=== PATIENT | female | born 1990 | race Caucasian/White ===

== ENCOUNTER → 2018-08-07 | Outpatient (CLI) | payer BC, MEDICAID ==
[~2018-08-07] MED LIST: AGM875T PO; METH4TAB PO; METR500T PO; NAPR-243 PO
--- NOTE | 2018-08-07 13:47 | Diagnostic Imaging Report ---
PROCEDURE: MRI right joint upper extremity without contrast. TECHNIQUE: Multiplanar, multisequence non contrast-enhanced MRI of the right upper extremity was accomplished. INDICATION: Shoulder pain, decreased range of motion, popping, and grinding; history of rheumatoid arthritis. COMPARISON: There are no previous studies available for comparison. FINDINGS: On the coronal T2 fat-saturated series, the rotator cuff is thinned but seems to be intact. The supraspinatus muscle is not retracted or bunched. 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 The labrum is thinned and most likely torn on a degenerative basis. There are also numerous sublabral cysts within the glenoid. Cyst formation is also seen in the humeral head along the insertion of the rotator cuff. In addition, there is an amorphous soft tissue density within the joint. This may be secondary to pannus formation related to the patient's diagnosis of rheumatoid arthritis. There is also a small joint effusion present. The subscapularis tendon is intact, but it is difficult to visualize the attachment of the biceps tendon to the biceps anchor. I suspect that the attachment of the biceps tendon to the biceps anchor has been disrupted. There is mild hypertrophy of the acromioclavicular joint, and this does result in narrowing of the outlet for the supraspinatus muscle. There is no abnormal signal arising from the osseous structures to suggest an acute fracture. IMPRESSION: 1. The rotator cuff is thinned but intact. 2. There is severe degenerative disease involving the glenohumeral joint, and the amorphous soft tissue density within the joint space may be secondary to pannus formation. A small joint effusion is noted as well. 3. The attachment of the biceps tendon to the biceps anchor is not well visualized and most likely the attachment has been disrupted. 4. There is no acute bony abnormality appreciated. Dictated on workstation # [id number]
--- NOTE | 2018-08-07 17:53 | Diagnostic Imaging Report ---
EXAMINATION: Left elbow at 08:55 a.m. INDICATION: Elbow pain. FINDINGS: Three views were obtained. There are no prior studies available for comparison. There is no fracture, dislocation, or acute bony abnormality evident. However, the posterior fat pad of the elbow joint is slightly elevated. This suggests that there may be a joint effusion present. While this finding is often seen in the setting of trauma with hemorrhage from a fracture extending into the joint, the possibility that there is a small joint effusion related to the patient's diagnosis of rheumatoid arthritis should be considered. There does appear to be moderate degenerative disease of the articulation of the olecranon process and the distal humerus. IMPRESSION: 1. There is no evidence for an acute bony abnormality. 2. There is degenerative disease of the articulation of the olecranon process and the distal humerus and there may be a small joint effusion present. These findings could be secondary to the patient's diagnosis of rheumatoid arthritis. If further imaging is desired, then MRI will be recommended. Dictated by: Dictated on workstation # [id number]
== END ==
LOC: RAD 07:58
PROVIDERS: ATTEND Emergency Medicine
DX: M19.011 Primary osteoarthritis, right shoulder (principal); M19.022 Primary osteoarthritis, left elbow; M75.81 Other shoulder lesions, right shoulder
CPT/HCPCS: 73080; 73221

== ENCOUNTER 2018-08-09 16:45 | Emergency (ER) | payer BC ==
[~2018-08-09] VITALS: Ht 165.1 cm; Wt 99.8 kg
[2018-08-09 17:27] LABS: CLARITY,URINE SL CLOUDY; COLOR,URINE DARK YELLOW; GLUCOSE, URINE (UA) NEGATIVE (NEGATIVE); PH,URINE 5.5 (5-9); PROTEIN,URINE TRACE (NEGATIVE)
[2018-08-09 17:28] LABS: BACTERIA,URINE MODERATE /HPF; BILIRUBIN,URINE NEGATIVE (NEGATIVE); KETONES,URINE 1+ (NEGATIVE); LEUKOCYTE ESTERASE ,URINE NEGATIVE (NEGATIVE); NITRITE,URINE NEGATIVE (NEGATIVE); SQUAMOUS EPITHELIAL CELL,UR 25-50 /HPF; UROBILINOGEN,URINE 0.2 MG/DL (NORMAL)
--- NOTE | 2018-08-09 18:08 | ED Abdominal Pain ---
General Chief Complaint: Abdominal/GI Problems Stated Complaint: RASH/WEAKNESS ABD PAIN Nursing Triage Note: Patient reports she was sitting on the cough this afternoon after eating lunch when she began having burning epigastric/generalized abdominal pain rated 6/10. She states she went to the bathroom and became flushed and sweaty, then developed redness to hands bilaterally and rash to trunk and arms bilaterally. She also became dizzy during this time. She states she has had two similar episodes in the last several months and has had two negative work-ups. Sepsis Screen: No Definite Risk History of Present Illness Date Seen by Provider: Aug 09, 2018 Time Seen by Provider: 17:50 This is a 28-year-old female with a history of rheumatoid arthritis on oxycodone , ibuprofen, also taking phentermine, and hx of PCOS, here for abdominal pain and itchy rash that started earlier today at rest. She states that she's had the same constellation of symptoms twice in the past, she did have blood testing with her doctor but was unsure if she was ever given a diagnosis. She says that she started to develop lower abdominal pain that then generalized throughout the whole abdomen, no vomiting, no change in bowel movements or change in urination, no vaginal bleeding. No fever or chills. She also started to feel hot and sweaty, her upper extremities felt itchy and then looked like they were red in color although this has resolved without intervention. She also had a rash around her neck that is still present. Never had difficulty swallowing or breathing. Never had coughing or wheezing. Never had lightheadedness. No alcohol, no drugs, she does vape nicotine. No family history of medical conditions that she is aware of. Allergies and Home Medications Allergies Uncoded Allergies: PCN (Allergy, Mild, 06/21/10) SULFA (Allergy, Mild, 06/21/10) Home Medications Metronidazole 500 Mg Tab, 1 EACH PO TID FOR INFECTION Prescribed by: BASILIA QUIROZ on 06/21/10451 Naproxen 500 Mg Tablet, 1 EACH PO TID PRN FOR PAIN Prescribed by: BASILIA QUIROZ on 06/21/10451 Patient Home Medication List Home Medication List Reviewed: Yes Review of Systems Review of Systems Constitutional: no symptoms reported EENTM: No Symptoms Reported Respiratory: No Symptoms Reported Cardiovascular: No Symptoms Reported Gastrointestinal: See HPI Genitourinary: No Symptoms Reported Musculoskeletal: no symptoms reported Skin: see HPI Psychiatric/Neurological: No Symptoms Reported Endocrine: No Symptoms Reported Hematologic/Lymphatic: See HPI (petechial rash) Past Dlmbsab-Uqkxal-Phlqyp Hx Past Med/Social Hx: Reviewed Nursing Past Med/Soc Hx Patient Social History Alcohol Use: Denies Use Recreational Drug Use: No Smoking Status: Current Everyday Smoker Type Used: Electronic/Vapor 2nd Hand Smoke Exposure: No Recent Foreign Travel: No Contact w/Someone Who Travel: No Recent Infectious Disease Expo: No Recent Hopitalizations: No Physical Abuse: No Sexual Abuse: No Mistreated: No Fear: No Seasonal Allergies Seasonal Allergies: No Past Medical History Surgeries: No Respiratory: No Cardiac: No Neurological: No Female Reproductive Disorders: Ovarian Cyst Genitourinary: No Gastrointestinal: No Musculoskeletal: Yes Rheumatoid Arthritis Endocrine: No HEENT: No Cancer: No Psychosocial: Yes Anxiety Integumentary: No Blood Disorders: No Physical Exam Vital Signs Vital Signs - First Documented 08/09/18 17:08 Temp 97.8 Pulse 99 Resp 16 B/P (MAP) 132/89 (103) Pulse Ox 99 O2 Delivery Room Air Capillary Refill : Less Than 3 Seconds Height/Weight/BMI Height: 5'5.00" Weight: 220lbs. oz. 99.496121ia; BMI Method:Stated General Appearance: no apparent distress HEENT: normal ENT inspection Neck: supple Respiratory: lungs clear Cardiovascular: normal peripheral pulses, regular rate, rhythm Gastrointestinal: soft, other (mild diffuse tenderness without rebound, rigidity, or guarding) Genital/Rectal: other (pelvic exam with Sunita EDT as packaging mechanic: normal external exam, small cloudy cervical discharge, mild to moderate CMT, otherwise no focal tenderness) Skin: warm/dry, other (there is a small area of petechiae present on base of the left side of the neck) Focused Exam Lactate Level 08/09/18 18:25: Lactic Acid Level 1.12 Lactic Acid Level Laboratory Tests Test 08/09/18 18:25 Lactic Acid Level 1.12 MMOL/L (0.50-2.00) Progress/Results/Core Measures Results/Orders Lab Results Laboratory Tests Test 08/09/18 17:05 08/09/18 18:15 08/09/18 18:25 08/09/18 19:50 Range/Units Urine Color DARK YELLOW Urine Clarity SL CLOUDY Urine pH 5.5 5-9 Urine Specific [place] >=1.030 1.016-1.022 Urine Protein TRACE H NEGATIVE Urine Glucose (UA) NEGATIVE NEGATIVE Urine Ketones 1+ H NEGATIVE Urine Nitrite NEGATIVE NEGATIVE Urine Bilirubin NEGATIVE NEGATIVE Urine Urobilinogen 0.2 NORMAL MG/DL Urine Leukocyte Esterase NEGATIVE NEGATIVE Urine RBC (Auto) NEGATIVE NEGATIVE Urine RBC NONE /HPF Urine WBC 5-10 H /HPF Urine Squamous Epithelial Cells 25-50 H /HPF Urine Crystals NONE /LPF Urine Bacteria MODERATE H /HPF Urine Casts NONE /LPF Urine Mucus LARGE H /LPF Urine Culture Indicated NO Urine Test NEGATIVE NEGATIVE White Blood Count 14.9 H 4.3-11.0 10^3/uL Red Blood Count 4.74 4.35-5.85 10^6/uL Hemoglobin 12.4 11.5-16.0 G/DL Hematocrit 39 35-52 % Mean Corpuscular Volume 81 80-99 FL Mean Corpuscular Hemoglobin 26 25-34 PG Mean Corpuscular Hemoglobin Concent 32 32-36 G/DL Red Cell Distribution Width 13.2 10.0-14.5 % Platelet Count 659 H 130-400 10^3/uL Mean Platelet Volume 9.0 7.4-10.4 FL Neutrophils (%) (Auto) 82 H 42-75 % Lymphocytes (%) (Auto) 11 L 12-44 % Monocytes (%) (Auto) 6 0-12 % Eosinophils (%) (Auto) 0 0-10 % Basophils (%) (Auto) 0 0-10 % Neutrophils # (Auto) 12.2 H 1.8-7.8 X 10^3 Lymphocytes # (Auto) 1.7 1.0-4.0 X 10^3 Monocytes # (Auto) 0.9 0.0-1.0 X 10^3 Eosinophils # (Auto) 0.0 0.0-0.3 10^3/uL Basophils # (Auto) 0.0 0.0-0.1 10^3/uL Neutrophils % (Manual) 77 % Lymphocytes % (Manual) 12 % Monocytes % (Manual) 6 % Eosinophils % (Manual) 1 % Basophils % (Manual) 1 % Band Neutrophils 3 % Sodium Level 139 135-145 MMOL/L Potassium Level 4.0 3.6-5.0 MMOL/L Chloride Level 100 98-107 MMOL/L Carbon Dioxide Level 24 21-32 MMOL/L Anion Gap 15 H 5-14 MMOL/L Blood Urea Nitrogen 17 7-18 MG/DL Creatinine 0.98 0.60-1.30 MG/DL Estimat Glomerular Filtration Rate > 60 BUN/Creatinine Ratio 17 Glucose Level 103 70-105 MG/DL Calcium Level 9.6 8.5-10.1 MG/DL Corrected Calcium 9.8 8.5-10.1 MG/DL Total Bilirubin 0.2 0.1-1.0 MG/DL Aspartate Amino Transf (AST/SGOT) 13 5-34 U/L Alanine Aminotransferase (ALT/SGPT) 12 0-55 U/L Alkaline Phosphatase 90 40-136 U/L Total Protein 8.0 6.4-8.2 GM/DL Albumin 3.7 3.2-4.5 GM/DL Lipase 50 8-78 U/L Prothrombin Time 13.5 12.2-14.7 SEC INR Comment 1.0 0.8-1.4 Activated Partial Thromboplast Time 31 24-35 SEC Lactic Acid Level 1.12 0.50-2.00 MMOL/L My Orders Orders - ANGELINA GOMEZ DO Ua Culture If Indicated (08/09/18 17:16) Hcg,Qualitative Urine (08/09/18 17:16) Hcg,Qualitative Urine (08/09/18 17:27) Ua Culture If Indicated (08/09/18 17:27) Cbc With Automated Diff (08/09/18 18:01) Comprehensive Metabolic Panel (08/09/18 18:01) Partial Thromboplastin Time (08/09/18 18:01) Protime With Inr (08/09/18 18:01) Lipase (08/09/18 18:01) Ct Abd/Pelv W (Appendicitis) (08/09/18 18:01) Blood Culture (08/09/18 18:09) Lactic Acid Analyzer (08/09/18 18:09) Manual Differential (08/09/18 18:15) Iohexol Injection (Omnipaque 350 Mg/Ml 1 (08/09/18 18:45) Received Contrast (Hold Metformin- Contr (08/09/18 18:45) Ns (Ivpb) (Sodium Chloride 0.9% Ivpb Bag (08/09/18 18:45) Chlamydia Trachomatis Swab (08/09/18 19:32) Neisseria Gonorrhea Swab (08/09/18 19:32) Clindamycin 900 Mg/50 Ml Ivpb (Cleocin P (08/09/18 20:00) Gentamicin (Adult) Injection (Garamycin (08/09/18 19:58) Ceftriaxone For Im Use (Rocephin For Im (08/09/18 20:15) Lidocaine 1% Inj 20 Ml (Xylocaine 1% Inj (08/09/18 20:15) Hydromorphone Injection (Dilaudid Inject (08/09/18 20:30) Hydromorphone Injection (Dilaudid Inject (08/09/18 20:20) Lidocaine Pf 1% 5 Ml Injection (Xylocain (08/09/18 20:52) Medications Given in ED Current Medications Medications Dose Ordered Sig/Henrietta Route Start Time Stop Time Status Last Admin Dose Admin Clindamycin Phosphate/Dextrose 50 ml @ 100 mls/hr ONCE ONCE IV 08/09/18 20:00 08/09/18 20:29 DC 08/09/18 20:17 100 MLS/HR Hydromorphone HCl 1 mg ONCE ONCE IV 08/09/18 20:30 08/09/18 20:31 DC 08/09/18 20:24 1 MG Iohexol 100 ml ONCE ONCE IV 08/09/18 18:45 08/09/18 20:30 DC 08/09/18 18:46 100 ML Lidocaine HCl 0.9 ml ONCE ONCE INJ 08/09/18 20:15 08/09/18 20:16 DC 08/09/18 21:01 0.9 ML Vital Signs/I&O 08/09/18 17:08 Temp 97.8 Pulse 99 Resp 16 B/P (MAP) 132/89 (103) Pulse Ox 99 O2 Delivery Room Air Blood Pressure Mean: 103 Progress Progress Note #1: Progress Note This is a 28-year-old female with a history of rheumatoid arthritis on oxycodone , ibuprofen for this, also one phentermine, who is here for an itchy rash on the neck and extremities, currently resolved on the extremities, also diffuse abdominal pain. She states that she has had all of these symptoms before. She does have an area of petechiae on the left side of the neck which could simply be related to mechanical etiology however I am checking coagulation studies, platelets, I am checking a urinalysis, I can check blood cultures and lactic acid level although I do not believe the patient is septic. She does not have any symptoms suggestive of meningitis. ITP or TTP are considerations. Her abdomen is without peritoneal findings however I feel a CT may be of benefit. Patient denies need for any specific interventions like analgesics, antipruritic medication. We will continue to monitor. Progress Note #2: Progress Note Given adnexal mass I performed pelvic exam w Sunita EDT as packaging mechanic. GC/Chlam swab was sent, and given abscess is a differential consideration and equivocal finding of CMT on exam, I ordered empiric abx. Radiology was unable to assess blood flow on ovary and recommends US which is not available here. Presentation is not consistent with acute torsion but at this size she is at risk. So pt needs transfer to facility with US capability as well as SKETCH ARTIST. [facility] on diversion. 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 I paged [facility] as pt and s.o. were in agreement with transfer there. Departure Impression Primary Impression: Pelvic mass Additional Impressions: Petechial rash Leukocytosis Disposition: 02 XFER SHT-TRM HOSP Condition: Stable Transfer Time Spoke to Accepting Phy: 21:[address] Dickens Transfer Facility: [facility] Method of Transfer: EMS Departure-Patient Inst. Referrals: ESTEFANÍA FOX DO (PCP/Family) Primary Care Physician ANGELINA GOMEZ DO Aug 09, 2018 18:08
[2018-08-09 18:32] LABS: HEMATOCRIT 39 % (35-52); HEMOGLOBIN 12.4 G/DL (11.5-16.0); MEAN CORPUSCULAR HEMOGLOBIN 26 PG (25-34); MEAN CORPUSCULAR HGB CONC 32 G/DL (32-36); MEAN CORPUSCULAR VOLUME 81 FL (80-99); PLATELET COUNT 659 10^3/uL (130-400); RED CELL DISTRIBUTION WIDTH 13.2 % (10.0-14.5); WHITE BLOOD COUNT 14.9 10^3/uL (4.3-11.0)
[2018-08-09 18:33] LABS: BASOPHILS % (AUTO) 0 % (0-10); EOSINOPHILS % (AUTO) 0 % (0-10); LYMPHOCYTES # (AUTO) 1.7 X 10^3 (1.0-4.0); LYMPHOCYTES % (AUTO) 11 % (12-44); MONOCYTES # (AUTO) 0.9 X 10^3 (0.0-1.0); MONOCYTES % (AUTO) 6 % (0-12); NEUTROPHILS # (AUTO) 12.2 X 10^3 (1.8-7.8); NEUTROPHILS % (AUTO) 82 % (42-75)
[2018-08-09] MEDS ORDERED: IOHEXOL 350 MG/ML 100 ML (OMNIPAQUE 350) VIAL IV ONE (18:45)
[2018-08-09] MEDS ORDERED: NS 100 ML (IVPB) BAG IV ONE (18:45)
[2018-08-09] MEDS ORDERED: HOLD METFORMIN - RECEIVED CONTRAST 20 ML VIAL IV SCH (18:45)
[2018-08-09 18:54] LABS: BUN/CREATININE RATIO 17; CARBON DIOXIDE 24 MMOL/L (21-32); CHLORIDE 100 MMOL/L (98-107); CREATININE SERUM 0.98 MG/DL (0.60-1.30); GFR ESTIMATED > 60; SODIUM 139 MMOL/L (135-145)
[2018-08-09 18:55] LABS: ALANINE AMINOTRANSFERASE 12 U/L (0-55); ALBUMIN 3.7 GM/DL (3.2-4.5); ALKALINE PHOSPHATASE 90 U/L (40-136); BILIRUBIN,TOTAL 0.2 MG/DL (0.1-1.0); CALCIUM 9.6 MG/DL (8.5-10.1); GLUCOSE 103 MG/DL (70-105); LIPASE 50 U/L (8-78)
--- NOTE | 2018-08-09 18:55 | NUR ---
ASSUMED CARE OF THIS PATIENT FROM [facility], INTRODUCED SELF REVIEWED PLAN OF CARE. WILL CONTINUE TO MONITOR
[2018-08-09 19:05] LABS: BAND NEUTROPHILS 3 %; BASOPHILS % (MANUAL) 1 %; EOSINOPHILS % (MANUAL) 1 %; LYMPHOCYTES % (MANUAL) 12 %; MONOCYTES % (MANUAL) 6 %; NEUTROPHILS % (MANUAL) 77 %
--- NOTE | 2018-08-09 19:11 | Diagnostic Imaging Report ---
PROCEDURE: CT abdomen and pelvis with contrast, rule out appendicitis. TECHNIQUE: Multiple contiguous axial images were obtained through the abdomen and pelvis after the administration of intravenous contrast. INDICATION: Low abdominal pain. No comparison available. FINDINGS: The lung bases demonstrate no focal infiltrate or consolidation. There is no pleural or pericardial effusion. The liver demonstrates no focal intrahepatic abnormality. There is a gallstone within the gallbladder. There is no gallbladder distention or biliary dilatation. There is no adjacent inflammation or pericholecystic fluid. The spleen is normal in size. The pancreas is unremarkable. There is no adrenal mass. The kidneys appear nonobstructed. 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 The small and large bowel are normal in caliber without evidence of obstruction. The appendix is well-visualized and is normal. There is no abnormal bowel thickening. There is no focal inflammation within the omentum or the mesentery. The urinary bladder is nondistended. The uterus and the right ovary are unremarkable. In the left adnexa, there is a septated cystic lesion that may arise from the left ovary. This does extend midline and measures up to 11.6 x 10.2 x 7.4 cm. There is no free fluid within the pelvis. There is no free air. There is no pathologic lymphadenopathy. Aorta is normal in caliber. There is no acute or suspicious osseous abnormality. IMPRESSION: 1. Septated low-density cystic mass within the pelvis. On the coronal reformats the left ovary appears to be on its superior margin with a claw sign suggesting that this arises from the ovary. This likely reflects a large ovarian cyst but given its size would suggest interval followup to document resolution. Pelvic ultrasound could also be considered to confirm Doppler flow within the left ovary. 2. Cholelithiasis without gallbladder distention or biliary dilatation. 3. CT abdomen and pelvis otherwise appears unremarkable. Dictated by: Dictated on workstation # [id number]
[2018-08-09] MEDS ORDERED: GENTAMICIN IV STA (19:58)
[2018-08-09] MEDS ORDERED: NS IV STA (19:58)
[2018-08-09 20:00] LABS: PROTHROMBIN TIME PATIENT 13.5 SEC (12.2-14.7)
[2018-08-09] MEDS ORDERED: CLINDAMYCIN 900 MG/50 ML IVPB 50 ML IV ONE (20:00)
[2018-08-09] MEDS ORDERED: cefTRIAXone 250 MG/ML vial (IM ONLY) IM STA (20:15)
[2018-08-09] MEDS ORDERED: LIDOCAINE 1% INJ 20 ML 20 ML VIAL INJ ONE (20:15)
[2018-08-09] MEDS ORDERED: HYDROmorphone 2 MG/ML VIAL (DILAUDID) ONE (20:20)
[2018-08-09] MEDS ORDERED: HYDROmorphone 2 MG/ML VIAL (DILAUDID) IV ONE (20:30)
[2018-08-09] MEDS ORDERED: LIDOCAINE PF 1% 5 ML (XYLOCAINE) AMP ONE (20:52)
[2018-08-09] MEDS ORDERED: HYDROmorphone 2 MG/ML VIAL (DILAUDID) IVP ONE (22:15)
[2018-08-09 23:27] VITALS: BP 114/67
--- NOTE | 2018-08-09 23:27 | NUR ---
PATIENT DEPARTED FROM THIS ER IN PRIVATE VEHICLE DRIVEN BY HER SPOUSE. IV WAS WRAPPED IN P[facility]RE[place] AND COVERED WITH TAPE. REPORT WAS GIVEN TO LUÍS CHARGE NURSE FOR EMILIA RN WHO WILL CARE FOR THE PATIENT UPON ARRIVAL. PATIENT IS A DIRECT ADMIT TO MEDICAL ROOM 186. PACKET WITH ALL PAPERWORK IS COPIED AND GIVEN TO THE PATIENT IN A CLOSED PACKET AND DIAGNOSTICS HAVE BEEN CLOUDED. [facility] MEDICAL RECORD IS PRINTED AN PRESENTED TO PATIENT FOR HER OWN RECORDS OF THIS VISIT.
== END 2018-08-09 23:40 | disposition short-term general hospital (02) ==
LOC: EDUNIT# 16:45 → ER FS 16:46
DX: R19.00 Intra-abdominal and pelvic swelling, mass and lump, unspecified site (principal); R21 Rash and other nonspecific skin eruption; D72.829 Elevated white blood cell count, unspecified; M06.9 Rheumatoid arthritis, unspecified; F41.9 Anxiety disorder, unspecified; F17.290 Nicotine dependence, other tobacco product, uncomplicated; Z87.448 Personal history of other diseases of urinary system; Z88.0 Allergy status to penicillin; Z88.2 Allergy status to sulfonamides
CPT/HCPCS: 36415; 74177; 80053; 81000; 83605; 83690; 84703; 85007; 85027; 85610; 85730; 87040; 87491; 87591

== ENCOUNTER → 2019-09-18 | Outpatient (CLI) | payer MEDICAID, OTHER ==
--- NOTE | 2019-09-18 13:22 | Diagnostic Imaging Report ---
INDICATION: Bilateral hand pain and rheumatoid arthritis. TIME OF EXAM: 11:49 AM Multiple views bilateral hands were obtained. FINDINGS: Carpus is unremarkable. MCP and interphalangeal joints appear to be unremarkable. No definite osseous erosions are detected. Soft tissues are unremarkable. No fractures are seen. IMPRESSION: Unremarkable bilateral hand radiographs. Dictated by: Dictated on workstation # [id number]
== END ==
LOC: RAD FS 11:35
DX: M79.642 Pain in left hand (principal); M79.641 Pain in right hand; M06.849 Other specified rheumatoid arthritis, unspecified hand

== ENCOUNTER → 2019-12-03 | Outpatient (CLI) | payer MEDICAID | LOC: RAD 11:27 | PROVIDERS: ATTEND Emergency Medicine | DX: Z53.9 Procedure and treatment not carried out, unspecified reason (principal); M06.9 Rheumatoid arthritis, unspecified ==

== ENCOUNTER → 2020-01-26 | Outpatient (CLI) | payer MEDICAID ==
--- NOTE | 2020-01-26 15:55 | Diagnostic Imaging Report ---
INDICATION: Left knee pain and swelling. Rheumatoid arthritis. TIME OF EXAM: 3:26 PM. TECHNIQUE: Three views of the left knee were obtained. FINDINGS: The alignment is normal. There is medial and lateral joint space narrowing, consistent with degenerative change. The lateral view is suboptimal. No definite fracture is seen. There is no definite joint effusion. IMPRESSION: Poor quality lateral view. There are medial and lateral compartmental degenerative changes. No acute bony abnormality is detected. Dictated by: Dictated on workstation # [id number]
== END ==
LOC: RAD FS 15:10
PROVIDERS: ATTEND Emergency Medicine
DX: M17.12 Unilateral primary osteoarthritis, left knee (principal)
CPT/HCPCS: 73562

== ENCOUNTER 2020-03-06 11:53 | Emergency (ER) | payer MEDICAID ==
[~2020-03-06] VITALS: Ht 165.1 cm; Wt 108.7 kg
[2020-03-06 11:56] VITALS: BP 131/65
--- NOTE | 2020-03-06 12:14 | ED Fall/Injury ---
General Chief Complaint: Trauma-Non Activation Stated Complaint: FALL Source: patient Exam Limitations: no limitations History of Present Illness Date Seen by Provider: Mar 06, 2020 Time Seen by Provider: 12:05 Initial Comments Patient is a 29-year-old female who presents to the emergency room after mechanical trip and fall today. Patient states that she was ambulating to the bathroom without using her walker when she caught her slipper on threshold. Patient fell against a cabinet and down onto her left side. Patient had immediate pain in her left knee, left hip, left arm. Patient states she has some right rib tenderness and it hurts to take a deep breath. She denies hitting her head or any loss of consciousness. Patient denies any abdominal pain or back pain. Patient has a history of rheumatoid arthritis and has chronic issues with her left knee and her entire left side. She normally takes hydrocodone for pain at home. She has not taken any today. All other review of systems reviewed and negative except as stated. Occurred: this morning (10 AM) Severity: severe Injuries/Pain Location: upper extremity, chest, pelvis, lower extremity Context: tripped Loss of Consciousness: no loss of consciousness Associated Symptoms (Fall): Denies Symptoms Allergies and Home Medications Allergies Uncoded Allergies: PCN (Allergy, Mild, 06/21/10) SULFA (Allergy, Mild, 06/21/10) Home Medications Metronidazole 500 Mg Tab, 1 EACH PO TID FOR INFECTION Prescribed by: BASILIA QUIROZ on 06/21/10451 Naproxen 500 Mg Tablet, 1 EACH PO TID PRN FOR PAIN Prescribed by: BASILIA QUIROZ on 06/21/10451 Patient Home Medication List Home Medication List Reviewed: Yes Review of Systems Review of Systems Constitutional: no symptoms reported Eyes: No Symptoms Reported Ears, Nose, Mouth, Throat: no symptoms reported Respiratory: other (Painful deep breathing) Cardiovascular: no symptoms reported Gastrointestinal: no symptoms reported Genitourinary: no symptoms reported Musculoskeletal: joint pain (Left knee, left hip, left elbow) Skin: no symptoms reported Psychiatric/Neurological: No Symptoms Reported All Other Systems Reviewed Negative Unless Noted: Yes Past Exkapew-Xgkwot-Twwjin Hx Patient Social History Alcohol Use: Denies Use Recreational Drug Use: No Type Used: Electronic/Vapor 2nd Hand Smoke Exposure: No Recent Foreign Travel: No Contact w/Someone Who Travel: No Recent Hopitalizations: No Seasonal Allergies Seasonal Allergies: No Past Medical History Surgeries: No Respiratory: No Cardiac: No Neurological: No Female Reproductive Disorders: Ovarian Cyst Genitourinary: No Gastrointestinal: No Musculoskeletal: Yes Rheumatoid Arthritis Endocrine: No HEENT: No Cancer: No Psychosocial: Yes Anxiety Integumentary: No Blood Disorders: No Physical Exam Vital Signs Vital Signs - First Documented 03/06/20 11:56 Temp 36.9 Pulse 88 Resp 16 B/P (MAP) 131/65 (87) Pulse Ox 98 O2 Delivery Room Air Capillary Refill : Height, Weight, BMI Height: 5'5.00" Weight: 220lbs. oz. 99.193827kr; BMI Method:Stated General Appearance: WD/WN, moderate distress (Tearful and upset) HEENT: PERRL/EOMI Neck: non-tender, full range of motion Cardiovascular: regular rate, rhythm Respiratory: lungs clear, normal breath sounds, no respiratory distress, no accessory muscle use, other (Tender to palpation over the right lower ribs on the lateral aspect of the chest as well as the anterior chest) Gastrointestinal: normal bowel sounds, non tender, soft Extremities: no pedal edema, other (Decreased range of motion to the left knee secondary to large pre-existing effusion, the left knee joint is warm. No overlying erythema. Tender to palpation over the left hip joint. Soft tissue tenderness to the left elbow with intact range of motion both passive and active) Neurologic/Psychiatric: no motor/sensory deficits, alert, normal mood/affect, oriented x 3 Skin: normal color, warm/dry Chance Coma Score Best Eye Response: (4) Open Spontaneously Best Verbal Response: (5) Oriented Best Motor Response: (6) Obeys Commands Progress/Results/Core Measures Results/Orders My Orders Orders - SHALINI GARCIA MD Chest 1 View Ap/Pa Only (03/06/20 12:07) Pelvis With Left Hip 2-3 View (03/06/20 12:07) Hydrocodone/Apap 7.5/325 Tab (Lortab 7. (03/06/20 12:45) Vital Signs/I&O 03/06/20 11:56 Temp 36.9 Pulse 88 Resp 16 B/P (MAP) 131/65 (87) Pulse Ox 98 O2 Delivery Room Air Progress Progress Note : Time: 12:35 Progress Note 29-year-old female presents to the emergency room after mechanical trip and fall. Patient is complaining of left arm and left hip pain. 2 views of the left hip and also an image of the pelvis were taken, as well as a single view chest x-ray. No obvious signs of fracture to the ribs of the chest specifically on the right. No evidence of pneumothorax. Pelvis and hip x-rays are also negative. No evidence of fractures, dislocations. Patient is treated in the emergency department with 7.5 mg of hydrocodone. Patient states that she takes 10 mg hydrocodone at home on a routine basis. Patient is advised to ice the sore joint areas off and on for the next 24 to 48 hours and alternate her hydrocodone pain medication with [id number]-[id number] ibuprofen. She verbalized understanding all questions were sought and answered she is stable for discharge. Departure Impression Primary Impression: Contusion of left arm Qualified Codes: S40.022A - Contusion of left upper arm, initial encounter Additional Impressions: Contusion of left hip and thigh Qualified Codes: S70.02XA - Contusion of left hip, initial encounter; S70.12XA - Contusion of left thigh, initial encounter Contusion of right chest wall Qualified Codes: S20.211A - Contusion of right front wall of thorax, initial encounter Disposition: 01 HOME, SELF-CARE Condition: Stable Departure-Patient Inst. Decision time for Depature: 12:38 Referrals: ESTEFANÍA FOX DO (PCP/Family) Primary Care Physician Patient Instructions: Contusion (DC) Add. Discharge Instructions: Elevate your left arm to reduce any swelling that may develop. Use ice packs to the sore and bruised area of your arm and left hip, 20min at a time, 4 times a day. Alternate your pain medications with over the counter ibuprofen to ease the pain. Follow up with your family doctor as needed. Return to the Emergency Department for any worsening symptoms or further emergent concerns. SHALINI GARCIA MD Mar 06, 2020 12:13
[2020-03-06] MEDS ORDERED: HYDROcodone/APAP 7.5 MG/325 MG (LORTAB, LORCET PLUS) TABLET PO ONE (12:45)
--- NOTE | 2020-03-06 12:49 | Diagnostic Imaging Report ---
Indication: Fell right rib pain FINDINGS: Frontal view chest demonstrate the lungs to be clear. Heart, mediastinum and pulmonary vascularity are normal. No pleural effusion or pneumothorax is present. No fractures are visualized. IMPRESSION: Normal chest. Dictated by: Dictated on workstation # [id number]
--- NOTE | 2020-03-06 12:49 | Diagnostic Imaging Report ---
Indication: Fall and left hip pain. Time of exam 12:16 PM AP view of pelvis and 2 views of the left hip were obtained. Femoral acetabular alignment is normal. Femoral head and neck are intact. No fractures are identified. IMPRESSION: No acute bony abnormality is detected. Dictated by: Dictated on workstation # [id number]
== END 2020-03-06 12:52 | disposition home or self-care (01) ==
LOC: EDUNIT# 11:53 → ER FS 11:55
DX: S40.022A Contusion of left upper arm, initial encounter (principal); S70.02XA Contusion of left hip, initial encounter; S70.12XA Contusion of left thigh, initial encounter; S20.211A Contusion of right front wall of thorax, initial encounter; Z88.0 Allergy status to penicillin; Z88.2 Allergy status to sulfonamides; W01.0XXA Fall on same level from slipping, tripping and stumbling without subsequent striking against object, initial encounter
CPT/HCPCS: 71045; 73502

== ENCOUNTER → 2020-05-23 | Outpatient (CLI) | payer MEDICAID ==
--- NOTE | 2020-05-23 18:09 | Diagnostic Imaging Report ---
PROCEDURE: MRI left knee without contrast. INDICATION: Left knee pain, swelling, history of rheumatoid arthritis. TECHNIQUE: Multiplanar and multisequence noncontrast MR imaging was performed of the left knee. COMPARISON: Radiographs 01/26/2020 FINDINGS: There is marked joint space narrowing, essentially complete absence of the joint space of both the medial and lateral compartments. Also, significant narrowing at the patellofemoral compartment. There is slight lateral subluxation of the patella approximately one-third of the patella. The posterior cruciate ligament is visualized and maintained. The anterior cruciate ligament cannot be confirmed as intact. There is essentially nonvisualization of either the medial or lateral meniscus appearing largely distorted. There is a tunnel-like tract within central aspect of the tibia. Medial collateral ligament as well as lateral collateral ligament are grossly maintained. There is significant erosion and essentially absence of the articular cartilage of both medial and lateral compartments of. The quadriceps and patella tendons are intact. There does appear to be absence of the majority of the patellar cartilage. There is rather significant joint effusion with a complex appearance. Likely synovial thickening present. Overall assessment is fairly compromised and limited on this study with significant motion artifact present. IMPRESSION: 1. Markedly abnormal appearance about the knee. There is essentially complete absence of the medial and lateral, and to a lesser degree, the patellofemoral compartments. There is rather significant absence of the majority of the articular cartilage both medially and laterally as well as of the patellar cartilage. 2. Nonvisualization of the anterior cruciate ligament. 3. Extensive distortion and absence of the menisci. 4. Complex joint effusion with some diffuse synovial thickening present. Dictated by: Dictated on workstation # [id number]
== END ==
LOC: RAD 16:15
PROVIDERS: ATTEND Emergency Medicine
DX: M06.9 Rheumatoid arthritis, unspecified (principal); M25.862 Other specified joint disorders, left knee
CPT/HCPCS: 73721

== ENCOUNTER 2020-09-03 00:23 | Emergency (ER) | payer MEDICAID ==
[~2020-09-03] VITALS: Ht 152.4 cm; Wt 112.4 kg
[2020-09-03 00:31] VITALS: BP 123/74
[2020-09-03 01:03] LABS: BACTERIA,URINE LARGE /HPF; BILIRUBIN,URINE NEGATIVE (NEGATIVE); CLARITY,URINE CLOUDY; COLOR,URINE YELLOW; GLUCOSE, URINE (UA) NEGATIVE (NEGATIVE); KETONES,URINE NEGATIVE (NEGATIVE); LEUKOCYTE ESTERASE ,URINE NEGATIVE (NEGATIVE); NITRITE,URINE NEGATIVE (NEGATIVE); PROTEIN,URINE NEGATIVE (NEGATIVE)
[2020-09-03] MEDS ORDERED: CIPROFLOXACIN 500 MG (CIPRO) TABLET PO STA (01:16)
[2020-09-03] MEDS ORDERED: CIPR500T5 PO (01:23)
--- NOTE | 2020-09-03 01:23 | ED Abdominal Pain ---
General Chief Complaint: Abdominal/GI Problems Stated Complaint: ABDOMINAL PAIN/HEADACHE Nursing Triage Note: Pt in per POV from home with C/O abd pain X2 days and MARTIN. Denies N/V/D or fever. States its "around her belly button", "feels numb". Sepsis Screen: No Definite Risk Source of Information: Patient History of Present Illness Date Seen by Provider: September 03, 2020 Time Seen by Provider: 01:00 Initial Comments Patient is a 30-year-old female who presents with suprapubic pain tenderness starting 2 days ago. Symptoms are gradually increased. Patient reports dull pain with sharp episodes. She denies nausea vomiting fever chills sweats. Denies urinary frequency urgency dysuria and hematuria. Reports migraine-like headache. No medications or therapies taken prior to ED arrival. Timing/Duration: 1-2 Days Severity/Quality: Moderate Location: Suprapubic Radiation: Other Activities at Onset: Other Modifying Factors: Improves With Other Associated Symptoms: Other Allergies and Home Medications Allergies Uncoded Allergies: PCN (Allergy, Mild, 06/21/10) SULFA (Allergy, Mild, 06/21/10) Home Medications Metronidazole 500 Mg Tab, 1 EACH PO TID FOR INFECTION Prescribed by: BASILIA QUIROZ on 06/21/10451 Naproxen 500 Mg Tablet, 1 EACH PO TID PRN FOR PAIN Prescribed by: BASILIA QUIROZ on 06/21/10451 Patient Home Medication List Home Medication List Reviewed: Yes Review of Systems Review of Systems Constitutional: see HPI Respiratory: See HPI Cardiovascular: See HPI Gastrointestinal: See HPI Genitourinary: See HPI Musculoskeletal: see HPI Skin: see HPI Psychiatric/Neurological: See HPI Endocrine: See HPI Hematologic/Lymphatic: See HPI All Other Systems Reviewed Negative Unless Noted: Yes Past Ehkraqd-Cqbgty-Obuayi Hx Past Med/Social Hx: Reviewed Nursing Past Med/Soc Hx Patient Social History Type Used: Electronic/Vapor 2nd Hand Smoke Exposure: No Recent Infectious Disease Expo: No Recent Hopitalizations: No Seasonal Allergies Seasonal Allergies: No Past Medical History Surgeries: No Respiratory: No Cardiac: No Neurological: No Female Reproductive Disorders: Ovarian Cyst Genitourinary: No Gastrointestinal: No Musculoskeletal: Yes Rheumatoid Arthritis Endocrine: No HEENT: No Cancer: No Psychosocial: Yes Anxiety Integumentary: No Blood Disorders: No Physical Exam Vital Signs Vital Signs - First Documented 09/03/20 00:31 Temp 36.0 Pulse 77 Resp 14 B/P (MAP) 123/74 (90) Pulse Ox 97 O2 Delivery Room Air Capillary Refill : Less Than 3 Seconds Height/Weight/BMI Height: 5'5.00" Weight: 220lbs. oz. 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, alert, oriented x 3 Skin: normal color Focused Exam Sepsis Stage: Ruled Out Progress/Results/Core Measures Results/Orders Lab Results Laboratory Tests Test 09/03/20 00:31 Range/Units Urine Color YELLOW Urine Clarity CLOUDY Urine pH 6.0 5-9 Urine Specific [place] 1.025 H 1.016-1.022 Urine Protein NEGATIVE NEGATIVE Urine Glucose (UA) NEGATIVE NEGATIVE Urine Ketones NEGATIVE NEGATIVE Urine Nitrite NEGATIVE NEGATIVE Urine Bilirubin NEGATIVE NEGATIVE Urine Urobilinogen 0.2 < = 1.0 MG/DL Urine Leukocyte Esterase NEGATIVE NEGATIVE Urine RBC (Auto) NEGATIVE NEGATIVE Urine RBC NONE /HPF Urine WBC 10-25 H /HPF Urine Squamous Epithelial Cells 10-25 H /HPF Urine Crystals NONE /LPF Urine Bacteria LARGE H /HPF Urine Casts NONE /LPF Urine Mucus NEGATIVE /LPF Urine Culture Indicated YES Urine Test NEGATIVE NEGATIVE My Orders Orders - DILIP CHILDRESS DO Ua Culture If Indicated (09/03/20 00:49) Hcg,Qualitative Urine (09/03/20 00:49) Urine Culture (09/03/20 00:31) Ciprofloxacin Tablet (Cipro Tablet) (09/03/20 01:16) Hydrocodone/Apap 5/325 Tablet (Lortab 5 (09/03/20 01:30) Vital Signs/I&O 09/03/20 00:31 Temp 36.0 Pulse 77 Resp 14 B/P (MAP) 123/74 (90) Pulse Ox 97 O2 Delivery Room Air Blood Pressure Mean: 90 Departure Communication (Admissions) For dose of antibiotics given in the emergency department. Pain addressed. We will continue therapeutic and supportive care with PCP follow-up. Return precautions reviewed. Patient verbalizes understanding agreement discharge instructions prior to departure. Impression Primary Impression: Suprapubic pain Additional Impression: Urinary tract infection Disposition: HOME, SELF-CARE Condition: Stable Departure-Patient Inst. Decision time for Depature: 01:22 Referrals: ESTEFANÍA FOX DO (PCP/Family) Primary Care Physician Patient Instructions: Urinary Tract Infection, Adult ED Add. Discharge Instructions: Please take newly prescribed medications as directed. Increase fluids follow-up with your PCP in 3 to 5 days for urine culture results. Return to the ED if new or worsening symptoms. All discharge instructions reviewed with patient and/or family. Voiced understanding. Scripts Ciprofloxacin HCl (Ciprofloxacin HCl) 500 Mg Tablet 500 MG PO BID, #10 TAB Prov: DILIP CHILDRESS DO 09/03/20 DILIP CHILDRESS DO September 03, 2020 01:23
[2020-09-03] MEDS ORDERED: HYDROcodone/APAP 5 MG/325 MG (LORTAB) TAB PO ONE (01:30)
== END 2020-09-03 01:35 | disposition home or self-care (01) ==
LOC: EDUNIT# 00:23 → ER FS 00:27
DX: N39.0 Urinary tract infection, site not specified (principal); Z88.0 Allergy status to penicillin; Z88.2 Allergy status to sulfonamides
CPT/HCPCS: 81000; 84703; 87088; 99283

== ENCOUNTER 2020-10-28 02:46 | Day surgery (SDC) | payer MEDICAID ==
[2020-10-28] VITALS (10 sets, daily range): BP systolic 95–131; BP diastolic 55–88
[~2020-10-28] VITALS: Ht 162.6 cm; Wt 115.9 kg
[~2020-10-28 02:46] MED LIST changes: +CIPR500T5 PO
--- NOTE | 2020-10-28 03:10 | ED Abdominal Pain ---
General Chief Complaint: Abdominal/GI Problems Stated Complaint: ABDOMINAL PAIN Nursing Triage Note: PT TO ROOM FS01 VIA W/C WITH C/O ABD PAIN STARTING AT 2100 LAST NIGHT. PT REPORTS DENIES N/V/D. PT DENIES TAKING ANYTHING FOR THE PAIN. PT STATES SHE DID NOT KNOW WHAT TO TAKE FOR PAIN. History of Present Illness Date Seen by Provider: Oct 28, 2020 Time Seen by Provider: 03:05 Initial Comments 30-year-old female presents with lower abdominal pain that is now more diffuse. She reports that pain started around 9 PM last night that has gotten worse throughout the night. It originally started In the lower abdomen now is in the right and little bit in the left side but more in the right side. Hurts when she walks. She has some nausea but no vomiting. She does not have any urinary symptoms. She had a normal bowel movement a couple hours ago. She has a hist ory of large ovarian cyst and had to have the left ovary removed. Allergies and Home Medications Allergies Uncoded Allergies: PCN (Allergy, Mild, 06/21/10) SULFA (Allergy, Mild, 06/21/10) Home Medications Ciprofloxacin HCl 500 Mg Tablet, 500 MG PO BID Prescribed by: DILIP CHILDRESS on 09/03/20 0123 Metronidazole 500 Mg Tab, 1 EACH PO TID FOR INFECTION Prescribed by: BASILIA QUIROZ on 06/21/10 0452 Naproxen 500 Mg Tablet, 1 EACH PO TID PRN FOR PAIN Prescribed by: BASILIA QUIROZ on 06/21/10 0452 Patient Home Medication List Home Medication List Reviewed: Yes Review of Systems Review of Systems Constitutional: No chills, No fever Respiratory: Denies Cough; Shortness of Air, SOA at Rest Cardiovascular: Denies Chest Pain, Denies Irregular Heart Rate, Denies Lightheadedness Gastrointestinal: Abdominal Pain; Denies Constipated, Denies Diarrhea; Nausea; Denies Vomiting Genitourinary: Denies Burning, Denies Flank Pain Musculoskeletal: no symptoms reported Skin: no symptoms reported; No rash Psychiatric/Neurological: Anxiety Past Flceaqv-Vxvlzy-Uyciog Hx Patient Social History Tobacco Use?: No Substance use?: No Alcohol Use?: No Pt feels they are or have been: No Seasonal Allergies Seasonal Allergies: No Past Medical History Surgeries: No Respiratory: No Cardiac: No Neurological: No Female Reproductive Disorders: Ovarian Cyst Genitourinary: No Gastrointestinal: No Musculoskeletal: Yes Rheumatoid Arthritis Endocrine: No HEENT: No Cancer: No Psychosocial: Yes Anxiety Integumentary: No Blood Disorders: No Physical Exam Vital Signs Vital Signs - First Documented 10/28/20 02:57 Temp 36.5 Pulse 74 Resp 19 B/P (MAP) 152/70 (97) O2 Delivery Room Air Capillary Refill : Less Than 3 Seconds Height/Weight/BMI Height: 5'5.00" Weight: 220lbs. oz. 99.228123ua; 42.00 BMI Method:Stated General Appearance: obese, other (Uncomfortable) Neck: full range of motion, supple Respiratory: lungs clear, normal breath sounds Cardiovascular: normal peripheral pulses, regular rate, rhythm Gastrointestinal: soft; No distended; tenderness (Lower abdomen right lower abdomen) Extremities: normal range of motion Neurologic/Psychiatric: alert, normal mood/affect, oriented x 3 Skin: normal color, warm/dry Progress/Results/Core Measures Results/Orders Lab Results Laboratory Tests Test 10/28/20 02:54 10/28/20 03:00 Range/Units Urine Color YELLOW Urine Clarity CLEAR Urine pH 6.0 5-9 Urine Specific [place] >=1.030 1.016-1.022 Urine Protein NEGATIVE NEGATIVE Urine Glucose (UA) NEGATIVE NEGATIVE Urine Ketones NEGATIVE NEGATIVE Urine Nitrite NEGATIVE NEGATIVE Urine Bilirubin NEGATIVE NEGATIVE Urine Urobilinogen 0.2 < = 1.0 MG/DL Urine Leukocyte Esterase NEGATIVE NEGATIVE Urine RBC (Auto) NEGATIVE NEGATIVE Urine RBC RARE /HPF Urine WBC 0-2 /HPF Urine Squamous Epithelial Cells 2-5 /HPF Urine Crystals NONE /LPF Urine Bacteria FEW H /HPF Urine Casts NONE /LPF Urine Mucus MODERATE H /LPF Urine Culture Indicated NO White Blood Count 15.8 H 4.3-11.0 10^3/uL Red Blood Count 5.37 4.35-5.85 10^6/uL Hemoglobin 13.3 11.5-16.0 G/DL Hematocrit 43 35-52 % Mean Corpuscular Volume 80 80-99 FL Mean Corpuscular Hemoglobin 25 25-34 PG Mean Corpuscular Hemoglobin Concent 31 L 32-36 G/DL Red Cell Distribution Width 15.1 H 10.0-14.5 % Platelet Count 650 H 130-400 10^3/uL Mean Platelet Volume 9.5 7.4-10.4 FL Immature Granulocyte % (Auto) 0 % Neutrophils (%) (Auto) 59 42-75 % Lymphocytes (%) (Auto) 32 12-44 % Monocytes (%) (Auto) 7 0-12 % Eosinophils (%) (Auto) 2 0-10 % Basophils (%) (Auto) 0 0-10 % Neutrophils # (Auto) 9.2 H 1.8-7.8 X 10^3 Lymphocytes # (Auto) 5.0 H 1.0-4.0 X 10^3 Monocytes # (Auto) 1.1 H 0.0-1.0 X 10^3 Eosinophils # (Auto) 0.3 0.0-0.3 10^3/uL Basophils # (Auto) 0.1 0.0-0.1 10^3/uL Immature Granulocyte # (Auto) 0.1 0.0-0.1 10^3/uL Neutrophils % (Manual) 53 % Lymphocytes % (Manual) 35 % Monocytes % (Manual) 5 % Eosinophils % (Manual) 2 % Basophils % (Manual) 2 % Metamyelocytes % 1 % Band Neutrophils 2 % Platelet Estimate INCREASED Blood Morphology Comment NORMAL Sodium Level 139 135-145 MMOL/L Potassium Level 3.7 3.6-5.0 MMOL/L Chloride Level 100 98-107 MMOL/L Carbon Dioxide Level 27 21-32 MMOL/L Anion Gap 12 5-14 MMOL/L Blood Urea Nitrogen 16 7-18 MG/DL Creatinine 0.75 0.60-1.30 MG/DL Estimat Glomerular Filtration Rate > 60 BUN/Creatinine Ratio 21 Glucose Level 110 H 70-105 MG/DL Calcium Level 9.6 8.5-10.1 MG/DL Corrected Calcium 9.4 8.5-10.1 MG/DL Total Bilirubin 0.2 0.1-1.0 MG/DL Aspartate Amino Transf (AST/SGOT) 17 5-34 U/L Alanine Aminotransferase (ALT/SGPT) 16 0-55 U/L Alkaline Phosphatase 86 40-136 U/L C-Reactive Protein 3.22 H <0.50 MG/DL Total Protein 8.4 H 6.4-8.2 GM/DL Albumin 4.3 3.2-4.5 GM/DL My Orders Orders - FALLON,ANA PAULA L DO Ua Culture If Indicated (10/28/20 03:03) Ed Iv/Invasive Line Start (10/28/20 03:04) Cbc With Automated Diff (10/28/20 03:11) Comprehensive Metabolic Panel (10/28/20 03:11) Crp Fs (10/28/20 03:11) Urine Bedside (10/28/20 03:11) Abdomen (Kub) 1 View (10/28/20 03:11) Fentanyl Inj (Sublimaze Injection) (10/28/20 03:11) Ondansetron Injection (Zofran Injectio (10/28/20 03:15) Manual Differential (10/28/20 03:00) Ct Abd/Pelv W (Appendicitis) (10/28/20 03:42) Iohexol Injection (Omnipaque 350 Mg/Ml 1 (10/28/20 03:45) Received Contrast (Hold Metformin- Contr (10/28/20 03:45) Ns (Ivpb) (Sodium Chloride 0.9% Ivpb Bag (10/28/20 03:45) Piperacillin Sodium/Tazobactam (Zosyn Vi (10/28/20 04:45) Medications Given in ED Current Medications Medications Dose Ordered Sig/Henrietta Route Start Time Stop Time Status Last Admin Dose Admin Iohexol 100 ml ONCE ONCE IV 10/28/20 03:45 10/28/20 03:47 DC 10/28/20 04:01 100 ML Ondansetron HCl 4 mg ONCE ONCE IVP 10/28/20 03:15 10/28/20 03:16 DC 10/28/20 03:26 4 MG Sodium Chloride 100 ml ONCE ONCE IV 10/28/20 03:45 10/28/20 03:47 DC 10/28/20 04:01 100 ML Vital Signs/I&O 10/28/20 02:57 Temp 36.5 Pulse 74 Resp 19 B/P (MAP) 152/70 (97) O2 Delivery Room Air Blood Pressure Mean: 97 Departure Communication (Admissions) Time/Spoke to Admitting Phy: 04:30 Discussed with dickson Robles to admit, n.p.o., pain management. Impression Primary Impression: Appendicitis Qualified Codes: K35.30 - Acute appendicitis with localized peritonitis, without perforation or gangrene Disposition: 30 STILL A PATIENT Condition: Stable Admissions Decision to Admit Reason: Admit from ER (General) Decision to Admit/Date: Oct 28, 2020 Time/Decision to Admit Time: 04:30 Departure-Patient Inst. Referrals: ESTEFANÍA FOX DO (PCP/Family) Primary Care Physician ANA PAULA FALLON DO Oct 28, 2020 03:10
[2020-10-28] MEDS ORDERED: fentaNYL INJ 100 MCG/2 ML AMP IVP STA (03:11)
[2020-10-28] MEDS ORDERED: ONDANSETRON 4 MG/2 ML (SDV) Z0FRAN IVP ONE (03:15)
[2020-10-28 03:25] LABS: CLARITY,URINE CLEAR; COLOR,URINE YELLOW; GLUCOSE, URINE (UA) NEGATIVE (NEGATIVE); KETONES,URINE NEGATIVE (NEGATIVE); NITRITE,URINE NEGATIVE (NEGATIVE); PROTEIN,URINE NEGATIVE (NEGATIVE)
[2020-10-28 03:26] LABS: BACTERIA,URINE FEW /HPF; BILIRUBIN,URINE NEGATIVE (NEGATIVE); LEUKOCYTE ESTERASE ,URINE NEGATIVE (NEGATIVE); RBC,URINE RARE /HPF; WBC,URINE 0-2 /HPF
[2020-10-28 03:32] LABS: HEMATOCRIT 43 % (35-52); HEMOGLOBIN 13.3 G/DL (11.5-16.0); MEAN CORPUSCULAR HEMOGLOBIN 25 PG (25-34); MEAN CORPUSCULAR HGB CONC 31 G/DL (32-36); MEAN CORPUSCULAR VOLUME 80 FL (80-99); WHITE BLOOD COUNT 15.8 10^3/uL (4.3-11.0)
[2020-10-28 03:33] LABS: BASOPHILS # (AUTO) 0.1 10^3/uL (0.0-0.1); BASOPHILS % (AUTO) 0 % (0-10); EOSINOPHILS # (AUTO) 0.3 10^3/uL (0.0-0.3); EOSINOPHILS % (AUTO) 2 % (0-10); LYMPHOCYTES % (AUTO) 32 % (12-44); MEAN PLATELET VOLUME 9.5 FL (7.4-10.4); MONOCYTES # (AUTO) 1.1 X 10^3 (0.0-1.0); MONOCYTES % (AUTO) 7 % (0-12); NEUTROPHILS # (AUTO) 9.2 X 10^3 (1.8-7.8); NEUTROPHILS % (AUTO) 59 % (42-75); PLATELET COUNT 650 10^3/uL (130-400)
--- NOTE | 2020-10-28 03:33 | Diagnostic Imaging Report ---
REASON FOR EXAM: Abdominal pain. COMPARISON: 08/09/2018. TECHNIQUE: 2 views of the abdomen FINDINGS: The bowel gas pattern is nondistended. No large collection of free intraperitoneal air is seen. Scattered small amounts of gas and fecal material are present in the colon. No abnormal extraosseous calcifications are present. The osseous structures are age-appropriate. IMPRESSION: No evidence of bowel obstruction or large collection of free intraperitoneal air. Dictated by: Dictated on workstation # [id number]
[2020-10-28 03:41] LABS: CARBON DIOXIDE 27 MMOL/L (21-32); CHLORIDE 100 MMOL/L (98-107); POTASSIUM 3.7 MMOL/L (3.6-5.0); SODIUM 139 MMOL/L (135-145)
[2020-10-28 03:42] LABS: ALANINE AMINOTRANSFERASE 16 U/L (0-55); ALBUMIN 4.3 GM/DL (3.2-4.5); ALKALINE PHOSPHATASE 86 U/L (40-136); BILIRUBIN,TOTAL 0.2 MG/DL (0.1-1.0); BUN/CREATININE RATIO 21; CALCIUM 9.6 MG/DL (8.5-10.1); CREATININE SERUM 0.75 MG/DL (0.60-1.30); GFR ESTIMATED > 60; GLUCOSE 110 MG/DL (70-105); TOTAL PROTEIN 8.4 GM/DL (6.4-8.2)
[2020-10-28] MEDS ORDERED: IOHEXOL 350 MG/ML 100 ML (OMNIPAQUE 350) VIAL IV ONE (03:45)
[2020-10-28] MEDS ORDERED: NS 100 ML (IVPB) BAG IV ONE (03:45)
[2020-10-28] MEDS ORDERED: HOLD METFORMIN - RECEIVED CONTRAST 20 ML VIAL IV SCH (03:45)
[2020-10-28 04:01] LABS: BAND NEUTROPHILS 2 %; BASOPHILS % (MANUAL) 2 %; EOSINOPHILS % (MANUAL) 2 %; LYMPHOCYTES % (MANUAL) 35 %; METAMYELOCYTES % 1 %; MONOCYTES % (MANUAL) 5 %; NEUTROPHILS % (MANUAL) 53 %; PLATELET ESTIMATE INCREASED; RBC MORPH NORMAL
--- NOTE | 2020-10-28 04:24 | Diagnostic Imaging Report ---
EXAMINATION: CT abdomen and pelvis with intravenous contrast. TECHNIQUE: Multiple contiguous axial images were obtained through the abdomen and pelvis after the uneventful administration of intravenous contrast. All CT scans use one or more of the following dose optimizing techniques: automated exposure control, MA and/or KvP adjustment based on patient size and exam type or iterative reconstruction. HISTORY: Right lower quadrant pain. Leukocytosis. COMPARISON: 08/09/2018. FINDINGS: The heart is unremarkable. The included lung bases are clear. Cholelithiasis is present. No CT evidence of acute cholecystitis. No intra or extrahepatic biliary dilation. The liver, spleen, pancreas, adrenal glands, and kidneys have a normal appearance. There is no pathologically enlarged mesenteric or retroperitoneal adenopathy. The bowel loops are nondilated. The appendix is fluid-filled and mildly dilated measuring 0.8 cm. Minimal periappendicular fat stranding is seen.. There is no free fluid or free air. No acute osseous abnormalities. Ureters and bladder are grossly normal. A dominant follicle/cyst is seen in the right ovary. No free fluid is seen in the pelvis. There is no free air, loculated collection, or adenopathy in the pelvis. IMPRESSION: 1. Findings suggestive of early uncomplicated acute appendicitis. 2. Cholelithiasis without CT evidence of acute cholecystitis. 3. Dominant follicle/cyst in the right ovary. No free fluid in the pelvis. Dictated by: Dictated on workstation # [id number]
[2020-10-28] MEDS ORDERED: LACTATED RINGERS 1,000 ML IV STA (04:36)
[2020-10-28] MEDS ORDERED: PIPERACILLIN SODIUM/TAZOBACTAM 4.5 GM in NS (IVPB) 100 ML IV ONE (04:45)
[2020-10-28] MEDS ORDERED: morphine INJ 10 MG/ML 1ML (SYR OR VIAL) IVP ONE ×2 (04:45→10:45)
[2020-10-28] MEDS ORDERED: LACTATED RINGERS 1,000 ML IV SCH (07:00)
[2020-10-28] MEDS ORDERED: ONDANSETRON 4 MG/2 ML (SDV) Z0FRAN IV PRN (07:00)
[2020-10-28] MEDS: morphine INJ 4 MG/ML 1 ML (VIAL/SYRINGE) IV PRN ×2 (07:01→11:34)
[2020-10-28] MEDS ORDERED: LIDOCAINE/EPI 1%-1:100,000 (XYLOCAINE) 20ML ONE (08:44)
[2020-10-28] MEDS ORDERED: LACTATED RINGERS 1,000 ML IV PRN (09:00)
[2020-10-28] MEDS ORDERED: proPOfol 200 MG/20 ML (DIPRIVAN) VIAL IV ONE (09:00)
[2020-10-28] MEDS ORDERED: NEOSTIGMINE 3 MG/3 ML VIAL ONE (09:00)
[2020-10-28] MEDS ORDERED: fentaNYL INJ 100 MCG/2 ML AMP ONE (09:00)
[2020-10-28] MEDS ORDERED: ROCURONIUM 10 MG/ML 5 ML SYRINGE IV ONE (09:00)
[2020-10-28] MEDS ORDERED: LIDOCAINE PF 2% 5 ML (XYLOCAINE) VIAL ONE (09:00)
[2020-10-28] MEDS ORDERED: ONDANSETRON 4 MG/2 ML (SDV) Z0FRAN ONE (09:00)
[2020-10-28] MEDS ORDERED: GLYCOPYRROLATE 0.2 MG/ML (ROBINUL) 2 ML VIAL ONE (09:00)
[2020-10-28] MEDS ORDERED: MIDAZOLAM 2 MG/2 ML (VERSED) VIAL ONE (09:00)
--- NOTE | 2020-10-28 09:03 | Consultation - Surgery ---
JOEL KAUR MED STUDENT 10/28/20 0903: History of Present Illness History of Present Illness Patient Consulted On(sheeba/time) 10/28/20 08:57 Date Seen by Provider: Oct 28, 2020 Time Seen by Provider: 08:45 Reason for Visit: Abdominal pain History of Present Illness Patient is 30 year female who presented to the ER with diffuse abdominal pain. It started at 9 pm, has been constant, initially was similar to "menstrual pain", but got worse, which brought her in. Nothing made it better and laying down made it worse. She has some nausea, but no vomiting or subjective fevers. This morning the pain is now more localized to right lower quadrant and radiating into her lower right back, but is more "mild" with the pain medication she has received. Allergies and Home Medications Allergies Uncoded Allergies: PCN (Allergy, Mild, 06/21/10) SULFA (Allergy, Mild, 06/21/10) Home Medications Ciprofloxacin HCl 500 Mg Tablet, 500 MG PO BID Prescribed by: DILIP CHILDRESS on 09/03/20 0123 Metronidazole 500 Mg Tab, 1 EACH PO TID FOR INFECTION Prescribed by: BASILIA QUIROZ on 06/21/10 0452 Naproxen 500 Mg Tablet, 1 EACH PO TID PRN FOR PAIN Prescribed by: BASILIA QUIROZ on 06/21/10 045 Past Bshpqfy-Wabrwj-Wftpdn Hx Patient Social History Smoking Status: Former Smoker Type Used: Electronic/Vapor 2nd Hand Smoke Exposure: No Recent Hopitalizations: No Alcohol Use?: No Have you traveled recently?: No Seasonal Allergies Seasonal Allergies: No Surgeries History of Surgeries: Yes (B/l ear tubes as child) Surgeries: Oophorectomy (Left, with removal of benighn mass of uterus) Respiratory History of Respiratory Disorde: No Cardiovascular History of Cardiac Disorders: No Neurological History of Neurological Disord: No Reproductive System : No Female Reproductive Disorders: Ovarian Cyst Genitourinary History of Genitourinary Disor: No Gastrointestinal History of Gastrointestinal Di: No Musculoskeletal History of Musculoskeletal Dis: Yes Musculoskeletal Disorders: Fibromyalgia, Rheumatoid Arthritis Endocrine History of Endocrine Disorders: No HEENT History of HEENT Disorders: Yes 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) Cancer History of Cancer: No Psychosocial History of Psychiatric Problem: Yes Behavioral Health Disorders: Anxiety, Depression Integumentary History of Skin or Integumenta: No Blood Transfusions History of Blood Disorders: No Family Medical History Significant Family History: Heart Disease (mother-stent placement), Hypertension (mother) Review of Systems-General Constitutional: No chills, No diaphoresis, No fever EENTM: hearing loss (right ear); No ear pain, No blurred vision Respiratory: No cough, No short of breath Cardiovascular: No chest pain, No palpitations Gastrointestinal: RLQ; No constipation, No diarrhea Genitourinary: No dysuria, No frequency Musculoskeletal: joint pain Skin: No change in color, No dryness, No lesions, No lumps Psychiatric/Neurological: Anxiety, Depressed Physical Exam-General Problems Physical Exam Vital Signs Vital Signs - First Documented 10/28/20 10/28/20 02:57 05:47 Temp 36.5 Pulse 74 Resp 19 B/P (MAP) 152/70 (97) Pulse Ox 99 O2 Delivery Room Air Capillary Refill : Less Than 3 Seconds General Appearance: WD/WN, mild distress Eyes: Bilateral Eye PERRL, Bilateral Eye EOMI HEENT: pharynx normal; No scleral icterus (R), No scleral icterus (L) Neck: non-tender, supple, normal inspection Respiratory: chest non-tender, lungs clear, normal breath sounds, no respiratory distress, no accessory muscle use Cardiovascular: normal peripheral pulses, regular rate, rhythm, no murmur Peripheral Pulses: 2+ Radial Pulses (R), 2+ Radial Pulses (L) Gastrointestinal: normal bowel sounds, no organomegaly, guarding; No rebound; tenderness (Localized in RLQ on palpation) Back: normal inspection, no CVA tenderness Extremities: no pedal edema, no calf tenderness, normal capillary refill 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, no motor/sensory deficits, alert, oriented x 3 Skin: normal color, warm/dry Lymphatic: no adenopathy (neck, axilla, groin) Data Review Labs Laboratory Tests 10/28/20 02:54: Urine Color YELLOW, Urine Clarity CLEAR, Urine pH 6.0, Urine Specific [place] >=1.030, Urine Protein NEGATIVE, Urine Glucose (UA) NEGATIVE, Urine Ketones NEGATIVE, Urine Nitrite NEGATIVE, Urine Bilirubin NEGATIVE, Urine Urobilinogen 0.2, Urine Leukocyte Esterase NEGATIVE, Urine RBC (Auto) NEGATIVE, Urine RBC RARE, Urine WBC 0-2, Urine Squamous Epithelial Cells 2-5, Urine Crystals NONE, Urine Bacteria FEWH, Urine Casts NONE, Urine Mucus MODERATEH, Urine Culture Indicated NO 10/28/20 03:00: White Blood Count 15.8H, Red Blood Count 5.37, Hemoglobin 13.3, Hematocrit 43, Mean Corpuscular Volume 80, Mean Corpuscular Hemoglobin 25, Mean Corpuscular Hemoglobin Concent 31L, Red Cell Distribution Width 15.1H, Platelet Count 650H, Mean Platelet Volume 9.5, Immature Granulocyte % (Auto) 0, Neutrophils (%) (Auto) 59, Lymphocytes (%) (Auto) 32, Monocytes (%) (Auto) 7, Eosinophils (%) (Auto) 2, Basophils (%) (Auto) 0, Neutrophils # (Auto) 9.2H, Lymphocytes # (Auto) 5.0H, Monocytes # (Auto) 1.1H, Eosinophils # (Auto) 0.3, Basophils # (Auto) 0.1, Immature Granulocyte # (Auto) 0.1, Neutrophils % (Manual) 53, Lymphocytes % (Manual) 35, Monocytes % (Manual) 5, Eosinophils % (Manual) 2, Basophils % (Manual) 2, Metamyelocytes % 1, Band Neutrophils 2, Platelet Estimate INCREASED, Blood Morphology Comment NORMAL, Sodium Level 139, Potassium Level 3.7, Chloride Level 100, Carbon Dioxide Level 27, Anion Gap 12, Blood Urea Nitrogen 16, Creatinine 0.75, Estimat Glomerular Filtration Rate > 60, BUN/Creatinine Ratio 21, Glucose Level 110H, Calcium Level 9.6, Corrected Calcium 9.4, Total Bilirubin 0.2, Aspartate Amino Transf (AST/SGOT) 17, Alanine Aminotransferase (ALT/SGPT) 16, Alkaline Phosphatase 86, C-Reactive Protein 3.22H, Total Protein 8.4H, Albumin 4.3 Radiology Date of Exam:10/28/20 CT ABD/PELV W (APPENDICITIS) EXAMINATION: CT abdomen and pelvis with intravenous contrast. TECHNIQUE: Multiple contiguous axial images were obtained through the abdomen and pelvis after the uneventful administration of intravenous contrast. All CT scans use one or more of the following dose optimizing techniques: automated exposure control, MA and/or KvP adjustment based on patient size and exam type or iterative reconstruction. HISTORY: Right lower quadrant pain. Leukocytosis. COMPARISON: 08/09/2018. FINDINGS: The heart is unremarkable. The included lung bases are clear. Cholelithiasis is present. No CT evidence of acute cholecystitis. No intra or extrahepatic biliary dilation. The liver, spleen, pancreas, adrenal glands, and kidneys have a normal appearance. There is no pathologically enlarged mesenteric or retroperitoneal adenopathy. The bowel loops are nondilated. The appendix is fluid-filled and mildly dilated measuring 0.8 cm. Minimal periappendicular fat stranding is seen.. There is no free fluid or free air. No acute osseous abnormalities. Ureters and bladder are grossly normal. A dominant follicle/cyst is seen in the right ovary. No free fluid is seen in the pelvis. There is no free air, loculated collection, or adenopathy in the pelvis. IMPRESSION: 1. Findings suggestive of early uncomplicated acute appendicitis. 2. Cholelithiasis without CT evidence of acute cholecystitis. 3. Dominant follicle/cyst in the right ovary. No free fluid in the pelvis. Dictated by: Dictated on workstation # [id number] Dict: 10/28/20419 Trans: 10/28/[address] [facility] [id number] Interpreted by: CHRISTINE TOMAS DO Electronically signed by: CHRISTINE TOMAS DO 10/28/20 0423 Assessment/Plan Assessment/Plan Assessment/Plan Acute appendicitis - NPO - ABX started - pain control White count elevated, exam consistent with appendicitis, CT findings agree, plan to take to OR this morning. LOULOU MILIAN DO 10/28/20 0934: History of Present Illness History of Present Illness Time Seen by Provider: 09:18 History of Present Illness Surgery asked to consult regarding appendicitis. HPI per ED: PT TO ROOM FS01 VIA W/C WITH C/O ABD PAIN STARTING AT 2100 LAST NIGHT. PT REPORTS DENIES N/V/D. PT DENIES TAKING ANYTHING FOR THE PAIN. PT STATES SHE DID NOT KNOW WHAT TO TAKE FOR PAIN. 30-year-old female presents with lower abdominal pain that is now more diffuse. She reports that pain started around 9 PM last night that has gotten worse throughout the night. It originally started In the lower abdomen now is in the right and little bit in the left side but more in the right side. Hurts when she walks. She has some nausea but no vomiting. She does not have any urinary symptoms. She had a normal bowel movement a couple hours ago. She has a history of large ovarian cyst and had to have the left ovary removed. When I spoke to pt she was still having pain in RLQ and very nervous about surgery. Allergies and Home Medications Allergies Uncoded Allergies: PCN (Allergy, Mild, 06/21/10) SULFA (Allergy, Mild, 06/21/10) Home Medications Ciprofloxacin HCl 500 Mg Tablet, 500 MG PO BID Prescribed by: DILIP CHILDRESS on 09/03/20 0123 Metronidazole 500 Mg Tab, 1 EACH PO TID FOR INFECTION Prescribed by: BASILIA QUIROZ on 06/21/10 0452 Naproxen 500 Mg Tablet, 1 EACH PO TID PRN FOR PAIN Prescribed by: BASILIA QUIROZ on 06/21/10 045 Patient Home Medication List Home Medication List Reviewed: Yes Past Pkwwlgs-Rpiokg-Kkhkda Hx Patient Social History Smoking Status: Former Smoker Alcohol Use?: Yes Surgeries History of Surgeries: Yes (B/l ear tubes as child) Surgeries: Oophorectomy (Left, with removal of benighn mass of uterus) Respiratory History of Respiratory Disorde: No Cardiovascular History of Cardiac Disorders: No Neurological History of Neurological Disord: No Reproductive System : No Genitourinary History of Genitourinary Disor: No Gastrointestinal History of Gastrointestinal Di: No Musculoskeletal History of Musculoskeletal Dis: Yes Musculoskeletal Disorders: Fibromyalgia, Rheumatoid Arthritis Cancer History of Cancer: No Psychosocial History of Psychiatric Problem: Yes Behavioral Health Disorders: Anxiety, Depression Integumentary History of Skin or Integumenta: No Family Medical History Significant Family History: Heart Disease (mother-stent placement), Hypertension (mother) Review of Systems-General Constitutional: No chills, No diaphoresis, No fever EENTM: hearing loss (right ear); No ear pain, No blurred vision Respiratory: No cough, No short of breath Cardiovascular: No chest pain, No palpitations Gastrointestinal: RLQ; No constipation, No diarrhea, No nausea, No vomiting Genitourinary: No dysuria, No frequency Musculoskeletal: joint pain, joint swelling, muscle stiffness Skin: No change in color, No dryness, No lesions, No lumps Psychiatric/Neurological: Anxiety, Depressed; Denies Seizure, Denies Tremors Physical Exam-General Problems Physical Exam General Appearance: WD/WN, mild distress Eyes: Bilateral Eye PERRL, Bilateral Eye EOMI HEENT: pharynx normal; No scleral icterus (R), No scleral icterus (L) Neck: non-tender, supple, normal inspection Respiratory: chest non-tender, lungs clear, normal breath sounds, no respiratory distress, no accessory muscle use Cardiovascular: regular rate, rhythm, no murmur Gastrointestinal: normal bowel sounds, no organomegaly, guarding; No rebound; tenderness (Localized in RLQ on palpation), hernia (small umbilical) Back: normal inspection, no CVA tenderness Extremities: no pedal edema, no calf tenderness 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 I reviewed the CT myself and can see the inflammation around the appendix, it is not very enlarged. Discussed the surgery with pt; risks and complications not limited to pain, bleeding, infection, scar, damage to bowel and need for further procedure. As long as everything looks ok in there she will probably go home today. All questions answered to her satisfaction. Supervisory-Addendum Brief Verification & Attestation Participated in pt care: history, MDM, physical Personally performed: exam, history, MDM, supervision of care Care discussed with: Medical Student Procedures: n/a Verification and Attestation of Medical Student E/M Service A medical student performed and documented this service. I then reviewed and verified all information documented by the medical student and made modifications to such information, when appropriate. I personally performed a physical exam, medical decision making and then discussed any differences between the notes and made revisions as necessary to create one note. Loulou Milian , 10/28/20 , 09:34 JOEL KAUR MED STUDENT Oct 28, 2020 09:03 LOULOU MILIAN DO Oct 28, 2020 09:34
[2020-10-28] MEDS ORDERED: HYDROmorphone 2 MG/ML VIAL (DILAUDID) ONE (10:05)
--- NOTE | 2020-10-28 10:17 | Progress Note-Post Operative ---
Post-Operative Progess Note Surgeon (s)/Daycare Director (s) Surgeon LOULOU MILIAN DO Daycare Director: NICOL Martini Pre-Operative Diagnosis acute appy Post-Operative Diagnosis same Procedure & Operative Findings Date of Procedure 10/28/20 Procedure Performed/Findings PROCEDURE: Laparoscopic appendectomy. COMPLICATIONS: None. INDICATIONS: The patient is a 30 year old female who has been having right lower quadrant abdominal pain. Patient's exam consistent with appendicitis. I discussed risk and benefits of laparoscopic appendectomy and all indicated procedures with the possibility being a normal appendix. The patient understands the risks and benefits and wishes to proceed. Consent was signed on the chart. DESCRIPTION OF PROCEDURE: The patient was taken to the operating suite, prepped and draped in a sterile fashion. Timeout was performed. Local anesthetic was infiltrated just above the umbilicus and 11-blade scalpel was used to make a skin incision. Cautery was used to dissect down to the fascia and scored. Kochers were used to grasp and elevate it and the abdomen was then entered. A 0 Vicryl was placed in a [id number] fashion for closure at the end of the case. The balloon trocar was inserted into the abdomen and pneumoperitoneum was achieved. Under direct visualization of the laparoscope, a 5 mm trocar was placed in the suprapubic region and a 5 mm trocar was placed in the left lower quadrant. Appendix was located, mildly inflamed and thickened; it looked like early acute appendicitis. The base of the appendix was dissected around. Once at the base an Endo-FRANCINE 2.5 stapler was then fired across the base of the appendix. The mesoappendix was then divided. It was then placed in an Endobag and removed through the 12 mm trocar site. The abdomen was then irrigated and suctioned. She had a mildly distended gallbladder and a cyst on the right ovary. The abdomen was then desufflated and the trocars were removed. The 0 Vicryl placed at the beginning of the case was then tied closing the 12 mm fascial defect. The skin was then closed using 4-0 Monocryl in a subcuticular fashion. The abdomen was then washed and dried and Skin Affix was placed over the incisions. The patient tolerated the procedure well without any complications and was taken to the recovery room in stable condition. Anesthesia Type GET Estimated Blood Loss Estimated blood loss (mL): scant Specimens/Packing Specimens Removed LOULOU Jean DO Oct 28, 2020 10:17
--- NOTE | 2020-10-28 10:18 | Discharge Inst-Surgical ---
Discharge Inst-Surgical Depart Medication/Instructions New, Converted or Re-Newed RX: Other (Pt stated she had pain meds at home) Patient Instructions Follow up Appt: Make appointment for 1 week. [phone] Instructions: No lifting greater than 20 pounds. No strenuous activity. May shower in 24 hours, no tub bath or soaking. Use incentive spirometer at home as directed. No Smoking Skin/Wound Care: May remove bandages in am. You need to leave the Dermabond on incision it will fall off on it's own. Symptoms to Report: Appetite Changes, Extremity Discoloration, Numbness/Tingling, Swelling Increased, Bleeding Excessive, Eyesight Changes, Pain Increased, Urine Color Change, Constipation(Persistent), Fever over 101 degree F, Pain/Pressure in chest, Urinating Difficulty, Cough Up/Vomit Blood, Heart Beat Irreg/Pounding, Pain/Pressure in jaw, Cramps in feet or legs, Lightheadedness, Pain/Pressure in shoulder, Diarrhea(Persistent), Memory Changes Suddenly, Questions/Concerns, Weight gain consecutive days, Dizziness/Fainting, Nausea/Vomiting, Shortness of Breath, Weight gain over 2 pounds If questions or concerns contact your physician Or seek help at emergency department. Activity Activity Instructions: Avoid Stress to Incision Driving Instructions: No Driving/Refer to Dr. Akins Discharge Diet: No Restrictions Diet After 24 Hours: Clear Liquid if Nauseous If Any Problems/Questions/Issu: Contact Your Physician, Go to Emergency Room Skin/Wound Care Infection Signs and Symptoms: Increased Redness, Foul Odor of Wound, Increased Drainage, Skin Itchy or Has a Rash, Increased Swelling, Temperature Above 101 F Wound Care Comment: heating pad to shoulder or neck tonight for pain Bathing Instructions: Shower Stitches/[place]/Dermabond Dis: Dermabond Ice Pack: Ice On and Off Site LOULOU MILIAN DO Oct 28, 2020 10:18
[2020-10-28] MEDS ORDERED: SEVOFLURANE (ULTANE) 15 ML INHAL SOLN ONE (10:36)
[2020-10-28] MEDS ORDERED: ONDANSETRON 4 MG/2 ML (SDV) Z0FRAN IVP PRN (10:45)
[2020-10-28] MEDS ORDERED: HYDROmorphone 2 MG/ML VIAL (DILAUDID) IV ONE (10:45)
--- NOTE | 2020-10-28 11:11 | Anesthesia-General Post-Op ---
General Patient Condition Mental Status/LOC: Same as Preop Cardiovascular: Satisfactory Nausea/Vomiting: Absent Respiratory: Satisfactory Pain: Controlled Complications: Absent Post Op Complications Complications None Follow Up Care/Instructions Patient Instructions None needed. Anesthesia/Patient Condition Patient Condition Patient is doing well, C/O some abdominal pain which is to be expected, stable vital signs, no apparent adverse anesthesia problems. VANE KHAN DO Oct 28, 2020 11:11
== END 2020-10-28 13:45 | disposition home or self-care (01) ==
LOC: EDUNIT# 02:46 → ER FS 02:48 → UNDOADMIN 06:31 → 4TH 06:31 → SDC 06:38 → 4TH 06:38 → SDC 13:45 → UNDODISIN 13:45
PROVIDERS: ATTEND Surgery
DX: K35.80 Unspecified acute appendicitis (principal); M06.9 Rheumatoid arthritis, unspecified; M79.7 Fibromyalgia; N32.89 Other specified disorders of bladder; N83.201 Unspecified ovarian cyst, right side; E66.9 Obesity, unspecified; F32.9 Major depressive disorder, single episode, unspecified; F41.9 Anxiety disorder, unspecified; Z79.899 Other long term (current) drug therapy; Z68.41 Body mass index [BMI] 40.0-44.9, adult; Z87.891 Personal history of nicotine dependence; Z82.49 Family history of ischemic heart disease and other diseases of the circulatory system
CPT/HCPCS: 36415; 44970; 74018; 74177; 80053; 81000; 84703; 85007; 85027; 86141; 87081; 96361; 96365; 96375; 99284; G0378

== ENCOUNTER 2021-10-06 16:06 | Emergency (ER) | payer MEDICAID ==
[2021-10-06] MEDS ORDERED: LORazepam 0.5 MG (ATIVAN) TABLET PO STA (16:21)
--- NOTE | 2021-10-06 16:21 | ED General ---
General Stated Complaint: CP Source of Information: Patient, Caregiver Exam Limitations: No Limitations History of Present Illness Date Seen by Provider: Oct 06, 2021 Time Seen by Provider: 16:00 Initial Comments Patient is a 31 yo female who presents with intermittent central chest pain for the past 3 weeks. Pain is brief, sharp and lasts for seconds and reproduces with deep breathing. She denies fever, chills, cough and sore throat. No leg pain and swelling. She was evaluated by her PCP 4 days ago and had outpatient lab and is awaiting at CT scan. No other acute symptoms or complaints. Timing/Duration: 4-6 Hours Severity: Mild Modifying Factors: improves with Other Associated Systoms: Other Allergies and Home Medications Allergies Uncoded Allergies: PCN (Allergy, Mild, 06/21/10) SULFA (Allergy, Mild, 06/21/10) Patient Home Medication List Home Medication List Reviewed: Yes Ciprofloxacin HCl (Ciprofloxacin HCl) 500 Mg Tablet, 500 MG PO BID Prescribed by: DILIP CHILDRESS on 09/03/20 0123 Metronidazole (Flagyl 500 Mg) 500 Mg Tab, 1 EACH PO TID Prescribed by: BASILIA QUIROZ on 06/21/10 0452 Naproxen (Naprosyn) 500 Mg Tablet, 1 EACH PO TID PRN Prescribed by: BASILIA QUIROZ on 06/21/10 0452 Review of Systems Review of Systems Constitutional: see HPI EENTM: no symptoms reported Respiratory: no symptoms reported Cardiovascular: no symptoms reported Gastrointestinal: no symptoms reported Genitourinary: no symptoms reported Musculoskeletal: no symptoms reported Skin: no symptoms reported Psychiatric/Neurological: No Symptoms Reported Hematologic/Lymphatic: No Symptoms Reported Past Dmkemmz-Pibids-Dgwbvc Hx Patient Social History Tobacco Use?: No Seasonal Allergies Seasonal Allergies: No Past Medical History Surgeries: Yes (B/l ear tubes as child) Oophorectomy Respiratory: No Cardiac: No Neurological: No Female Reproductive Disorders: Ovarian Cyst Genitourinary: No Gastrointestinal: No Musculoskeletal: Yes Fibromyalgia, Rheumatoid Arthritis Endocrine: No HEENT: Yes Hearing Impairment: Hard of Hearing Cancer: No Psychosocial: Yes Anxiety, Depression Integumentary: No Blood Disorders: No Family Medical History Heart Disease, Hypertension Physical Exam Vital Signs Vital Signs - First Documented 10/06/21 16:13 Temp 36.9 Pulse 92 Resp 22 B/P (MAP) 95/72 (80) Pulse Ox 94 O2 Delivery Room Air Capillary Refill : Height, Weight, BMI Height: 5'5.00" Weight: 220lbs. oz. 99.402042qa; 43.83 BMI Method:Stated General Appearance: No Apparent Distress, WD/WN, Anxious Eyes: Bilateral Eye Normal Inspection, Bilateral Eye PERRL, Bilateral Eye EOMI HEENT: PERRL/EOMI, Normal ENT Inspection, Pharynx Normal Neck: Full Range of Motion, Normal Inspection Respiratory: Lungs Clear, Normal Breath Sounds Cardiovascular: Regular Rate, Rhythm, No Edema, Normal Peripheral Pulses Gastrointestinal: Non Tender, Soft Extremity: Non Tender, No Calf Tenderness Neurologic/Psychiatric: Alert, Oriented x3, No Motor/Sensory Deficits Focused Exam Sepsis Stage: Ruled Out Progress/Results/Core Measures Suspected Sepsis SIRS Temperature: Pulse: Respiratory Rate: Laboratory Tests 10/06/21 16:18: White Blood Count 10.0 Blood Pressure / Mean: Laboratory Tests 10/06/21 16:18: Creatinine 0.97, Platelet Count 544H, Total Bilirubin 0.4 Results/Orders Lab Results Laboratory Tests Test 10/06/21 16:18 10/06/21 16:35 Range/Units White Blood Count 10.0 4.3-11.0 10^3/uL Red Blood Count 5.54 H 3.80-5.11 10^6/uL Hemoglobin 13.5 11.5-16.0 g/dL Hematocrit 42 35-52 % Mean Corpuscular Volume 77 L 80-99 fL Mean Corpuscular Hemoglobin 24 L 25-34 pg Mean Corpuscular Hemoglobin Concent 32 32-36 g/dL Red Cell Distribution Width 15.6 H 10.0-14.5 % Platelet Count 544 H 130-400 10^3/uL Mean Platelet Volume 9.6 9.0-12.2 fL Immature Granulocyte % (Auto) 0 % Neutrophils (%) (Auto) 62 42-75 % Lymphocytes (%) (Auto) 27 12-44 % Monocytes (%) (Auto) 8 0-12 % Eosinophils (%) (Auto) 2 0-10 % Basophils (%) (Auto) 0 0-10 % Neutrophils # (Auto) 6.2 1.8-7.8 10^3/uL Lymphocytes # (Auto) 2.7 1.0-4.0 10^3/uL Monocytes # (Auto) 0.8 0.0-1.0 10^3/uL Eosinophils # (Auto) 0.2 0.0-0.3 10^3/uL Basophils # (Auto) 0.0 0.0-0.1 10^3/uL Immature Granulocyte # (Auto) 0.0 0.0-0.1 10^3/uL Sodium Level 139 135-145 MMOL/L Potassium Level 3.9 3.6-5.0 MMOL/L Chloride Level 103 98-107 MMOL/L Carbon Dioxide Level 27 21-32 MMOL/L Anion Gap 9 5-14 MMOL/L Blood Urea Nitrogen 10 7-18 MG/DL Creatinine 0.97 0.60-1.30 MG/DL Estimat Glomerular Filtration Rate 79 BUN/Creatinine Ratio 10 Glucose Level 95 70-105 MG/DL Calcium Level 9.6 8.5-10.1 MG/DL Corrected Calcium 9.5 8.5-10.1 MG/DL Total Bilirubin 0.4 0.1-1.0 MG/DL Aspartate Amino Transf (AST/SGOT) 17 5-34 U/L Alanine Aminotransferase (ALT/SGPT) 10 0-55 U/L Alkaline Phosphatase 89 40-136 U/L Troponin I < 0.30 <0.30 NG/ML Total Protein 7.5 6.4-8.2 GM/DL Albumin 4.1 3.2-4.5 GM/DL Urine Test NEGATIVE NEGATIVE My Orders Orders - DILIP CHILDRESS DO Cbc With Automated Diff (10/06/21 16:21) Comprehensive Metabolic Panel (10/06/21 16:21) Hcg,Qualitative Urine (10/06/21 16:21) Troponin I Fs (10/06/21 16:21) Ekg Tracing (10/06/21 16:21) Ketorolac Injection (Toradol Injection) (10/06/21 16:30) Ct Angio Chest W (10/06/21 16:21) Lorazepam Tablet (Ativan Tablet) (10/06/21 16:21) Iohexol Injection (Omnipaque 350 Mg/Ml 1 (10/06/21 17:00) Received Contrast (Hold Metformin- Contr (10/06/21 17:00) Sodium Chloride Flush (Catheter Flush Sy (10/06/21 17:00) Ns (Ivpb) (Sodium Chloride 0.9% Ivpb Bag (10/06/21 17:00) Medications Given in ED Current Medications Medications Dose Ordered Sig/Henrietta Route Start Time Stop Time Status Last Admin Dose Admin Iohexol 125 ml ONCE ONCE IV 10/06/21 17:00 10/06/21 17:01 DC 10/06/21 17:09 125 ML Ketorolac Tromethamine 30 mg ONCE ONCE IVP 10/06/21 16:30 10/06/21 16:31 DC 10/06/21 16:37 30 MG Sodium Chloride 10 ml NEEDED PRN IV 10/06/21 17:00 10/06/21 17:09 10 ML Sodium Chloride 100 ml ONCE ONCE IV 10/06/21 17:00 10/06/21 17:01 DC 10/06/21 17:09 100 ML Vital Signs/I&O 10/06/21 16:13 Temp 36.9 Pulse 92 Resp 22 B/P (MAP) 95/72 (80) Pulse Ox 94 O2 Delivery Room Air Capillary Refill : Departure Communication (Admissions) EKG: no acute dis CTA chest: No PE Atypical chest pain. Lab, EKG, imaging reviewed. No acute findings. Patient's anxiety addressed and improved. Impression Primary Impression: Chest pain Disposition: HOME, SELF-CARE Condition: Stable Departure-Patient Inst. Decision time for Depature: 17:38 Referrals: ESTEFANÍA FOX DO (PCP/Family) Primary Care Physician Patient Instructions: Chest Pain Add. Discharge Instructions: You were evaluated in the ED for chest pain and the possibility of a blood clot in your lung. A CT scan was performed and are non-diagnostic. Please continue home medications and follow up with your PCP. Return to the ED if new or worsening symptoms. DILIP CHILDRESS DO Oct 06, 2021 16:21
[2021-10-06 16:26] LABS: BASOPHILS % (AUTO) 0 % (0-10); EOSINOPHILS # (AUTO) 0.2 10^3/uL (0.0-0.3); EOSINOPHILS % (AUTO) 2 % (0-10); HEMATOCRIT 42 % (35-52); HEMOGLOBIN 13.5 g/dL (11.5-16.0); LYMPHOCYTES # (AUTO) 2.7 10^3/uL (1.0-4.0); LYMPHOCYTES % (AUTO) 27 % (12-44); MEAN CORPUSCULAR HEMOGLOBIN 24 pg (25-34); MEAN CORPUSCULAR HGB CONC 32 g/dL (32-36); MEAN CORPUSCULAR VOLUME 77 fL (80-99); MEAN PLATELET VOLUME 9.6 fL (9.0-12.2); MONOCYTES # (AUTO) 0.8 10^3/uL (0.0-1.0); MONOCYTES % (AUTO) 8 % (0-12); NEUTROPHILS # (AUTO) 6.2 10^3/uL (1.8-7.8); NEUTROPHILS % (AUTO) 62 % (42-75); PLATELET COUNT 544 10^3/uL (130-400)
[2021-10-06] MEDS ORDERED: KETOROLAC 30 MG/ML VIAL IVP ONE (16:30)
[2021-10-06 16:46] LABS: POTASSIUM 3.9 MMOL/L (3.6-5.0); SODIUM 139 MMOL/L (135-145)
[2021-10-06 16:47] LABS: ALANINE AMINOTRANSFERASE 10 U/L (0-55); ALBUMIN 4.1 GM/DL (3.2-4.5); ALKALINE PHOSPHATASE 89 U/L (40-136); BILIRUBIN,TOTAL 0.4 MG/DL (0.1-1.0); BUN/CREATININE RATIO 10; CALCIUM 9.6 MG/DL (8.5-10.1); CARBON DIOXIDE 27 MMOL/L (21-32); CHLORIDE 103 MMOL/L (98-107); CREATININE SERUM 0.97 MG/DL (0.60-1.30); GFR ESTIMATED 79; GLUCOSE 95 MG/DL (70-105); TOTAL PROTEIN 7.5 GM/DL (6.4-8.2)
[2021-10-06] MEDS ORDERED: NS 100 ML (IVPB) BAG IV ONE (17:00)
[2021-10-06] MEDS ORDERED: HOLD METFORMIN - RECEIVED CONTRAST 20 ML VIAL IV SCH (17:00)
[2021-10-06] MEDS ORDERED: IOHEXOL 350 MG/ML 150 ML (OMNIPAQUE 350) VIAL IV ONE (17:00)
[2021-10-06] MEDS ORDERED: CATHETER FLUSH 10 ML SYR IV PRN (17:00)
--- NOTE | 2021-10-06 17:24 | Diagnostic Imaging Report ---
PROCEDURE: CT angiography of the chest with contrast. TECHNIQUE: Multiple contiguous axial images were obtained through the chest after uneventful bolus administration of intravenous contrast. 3D reconstructed CTA MIP acquisitions were also performed. Auto Exposure Controls were utilized during the CT exam to meet ALARA standards for radiation dose reduction. INDICATION: Intermittent chest pain x3 weeks. Sharp center of the chest. Elevated D-dimer. EXAMINATION: CT of the chest from 10/06/2021. FINDINGS: There are no central or proximal segmental pulmonary emboli. Thoracic aorta appears unremarkable. There is no adenopathy. Lungs clear. No nodules, masses or pleural effusions. No pericardial effusion. Visualized upper abdomen demonstrates fatty infiltration throughout the liver with stones noted in the gallbladder. There is no acute osseous abnormality. IMPRESSION: 1. Unremarkable CTA of the chest with no central or proximal segmental pulmonary emboli. 2. Hepatic steatosis 3. Cholelithiasis Dictated by: Dictated on workstation # [id number]
[2021-10-06 17:46] VITALS: BP 114/93
== END 2021-10-06 17:48 | disposition home or self-care (01) ==
LOC: EDUNIT# 16:06 → ER FS 16:08
DX: R07.89 Other chest pain (principal)
CPT/HCPCS: 36415; 71275; 80053; 84484; 84703; 85025; Q9967

== ENCOUNTER 2022-02-11 13:29 | Emergency (ER) | payer MEDICAID ==
[~2022-02-11] VITALS: Ht 162 cm; Wt 114.0 kg
[2022-02-11] MEDS ORDERED: ORPHENADRINE 60 MG/2 ML (NORFLEX) AMP (ED ONLY) IM STA (13:39)
[2022-02-11] MEDS ORDERED: KETOROLAC 60 MG/2 ML VIAL IM STA (13:39)
[2022-02-11] MEDS ORDERED: fentaNYL INJ 100 MCG/2 ML AMP IM STA (13:39)
--- NOTE | 2022-02-11 13:48 | ED Fall/Injury ---
General Chief Complaint: Back Problems Stated Complaint: FALL; LT HIP/BACK PAIN Nursing Triage Note: PT REPORTS SHE FELL ABOUT AN HOUR DYNAMO TENDER WHILE GETTING IN THE SHOWER. SHE REPORTS LEFT HIP PAIN AND LOWER BACK PAIN. SHE TOOK ONE OF HER REGULAR SCHEDULED OXYCODONE RIGHT AFTER THE FALL HAPPENED. Source: patient History of Present Illness Date Seen by Provider: Feb 11, 2022 Time Seen by Provider: 13:33 Initial Comments 31-year-old female presenting with complaints of falling when she got out of the shower about an hour prior to arrival. She states that she hit her left hip and flank on the toilet. She has had severe pain ever since the fall. She states that she did bump her head but did not get knocked out and is not having a headache. She had taken her regularly scheduled oxycodone 10 mg shortly after the fall. This was not helping with her pain so she came to the emergency department. She is tearful and distressed complaining of pain. There is increased pain with any palpation or movement of her hip and leg. She has chronic low back pain and states that she has rheumatoid arthritis. 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) Severity: severe Injuries/Pain Location: pelvis, lower extremity, other (left flank, hip and pelvis) Context: slipped Loss of Consciousness: no loss of consciousness Modifying Factors: Worse With Movement Associated Symptoms (Fall): No Abdominal Pain, No Chest Pain, No Confusion, No Dizziness, No Headache, No Lightheadedness, No Muscle Spasms; Nausea/Vomiting (nausea but no vomiting); No Neck Pain, No Ringing in Ears, No Seizures, No Shortness of Air, No Slurred Speech, No Vision Changes Allergies and Home Medications Allergies Uncoded Allergies: PCN (Allergy, Mild, 06/21/10) SULFA (Allergy, Mild, 06/21/10) Patient Home Medication List Home Medication List Reviewed: Yes Ciprofloxacin HCl (Ciprofloxacin HCl) 500 Mg Tablet, 500 MG PO BID Prescribed by: DILIP CHILDRESS on 09/03/20 0123 Cyclobenzaprine HCl (Cyclobenzaprine HCl) 10 Mg Tablet, 10 MG PO BID PRN for SPASMS Prescribed by: MICHELLE GOSS on 02/11/22 1509 Metronidazole (Flagyl 500 Mg) 500 Mg Tab, 1 EACH PO TID Prescribed by: BASILIA QUIROZ on 06/21/10 0452 Naproxen (Naprosyn) 500 Mg Tablet, 1 EACH PO TID PRN Prescribed by: BASILIA QUIROZ on 06/21/10 045 Oxycodone HCl/Acetaminophen (Oxycodone-Acetaminophen 10-325) 10 Mg-325 Mg Tablet, 1 EACH PO Q6H PRN for PAIN-BREAKTHROUGH Prescribed by: MICHELLE GOSS on 02/11/22 1509 Prednisone (Prednisone) 20 Mg Tab, 40 MG PO DAILY Prescribed by: MICHELLE GOSS on 02/11/22 1509 Review of Systems Review of Systems Constitutional: No chills, No fever Eyes: Denies Photophobia Ears, Nose, Mouth, Throat: denies ear pain, denies ear discharge, denies nose pain, denies nose discharge, denies epistaxis Respiratory: No cough, No short of breath Cardiovascular: No chest pain Gastrointestinal: nausea; No vomiting; other (left flank pain) Genitourinary: No dysuria Musculoskeletal: see HPI, joint pain (left hip pain) Skin: No change in color Psychiatric/Neurological: Anxiety; Denies Numbness, Denies Paresthesia Past Uhhvbqc-Kuenwe-Himsny Hx Patient Social History Use of E-Cig and/or Vaping dev: Unable to obtain Substance use?: Unable to obtain Alcohol Use?: Unable to obtain Seasonal Allergies Seasonal Allergies: No Past Medical History Surgery/Hospitalization HX: Chronic Back pain, Rheumatoid Arthritis Surgeries: Yes (B/l ear tubes as child) Oophorectomy Respiratory: No Cardiac: No Neurological: No Female Reproductive Disorders: Ovarian Cyst Genitourinary: No Gastrointestinal: No Musculoskeletal: Yes Fibromyalgia, Rheumatoid Arthritis Endocrine: No HEENT: Yes Hearing Impairment: Hard of Hearing Cancer: No Psychosocial: Yes Anxiety, Depression Integumentary: No Blood Disorders: No Family Medical History Heart Disease, Hypertension Physical Exam Vital Signs Vital Signs - First Documented 02/11/22 13:36 Temp 36.5 Pulse 84 Resp 16 B/P (MAP) 157/90 (112) Pulse Ox 98 Capillary Refill : Less Than 3 Seconds Height, Weight, BMI Height: 5'5.00" Weight: 220lbs. oz. 99.552860lh; 43.00 BMI Method:Stated General Appearance: moderate distress (tearful at times and complains of pain to left hip and flank), obese HEENT: PERRL/EOMI, pharynx normal Neck: non-tender, full range of motion, supple, normal inspection Cardiovascular: normal peripheral pulses, regular rate, rhythm Respiratory: chest non-tender, lungs clear, normal breath sounds Gastrointestinal: normal bowel sounds, non tender, soft, no pulsatile mass Back: No no CVA tenderness; muscle spasm (pain and spasms to left hip/flank/low back. 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, no motor/sensory deficits, alert, oriented x 3 Skin: normal color, warm/dry [place] Coma Score Best Eye Response: (4) Open Spontaneously Best Verbal Response: (5) Oriented Best Motor Response: (6) Obeys Commands Chance Total: 15 Progress/Results/Core Measures Results/Orders My Orders Orders - MICHELLE GOSS MD Ketorolac Injection (Toradol Injection) (02/11/22 13:39) Orphenadrine Inj (Ed Only) (Norflex Inje (02/11/22 13:39) Fentanyl Inj (Sublimaze Injection) (02/11/22 13:39) Ct Abdomen/Pelvis Wo (02/11/22 13:41) Vital Signs/I&O 02/11/22 02/11/22 13:36 14:47 Temp 36.5 36.5 Pulse 84 84 Resp 16 16 B/P (MAP) 157/90 (112) 157/90 Pulse Ox 98 98 Blood Pressure Mean: 112 Progress Progress Note #1: Progress Note Order Toradol 60 mg IM for pain and inflammation, Norflex 60 mg IM for muscle spasms and pain, fentanyl 100 mcg IM for pain. Obtain a CT scan of the abdomen pelvis without contrast to evaluate for possible kidney stone versus hip fracture versus pelvis fracture versus compression fracture versus bone. Progress Note #2: Progress Note Pain doing a little better and patient is not as anxious and tearful. CT read out as no acute fracture or acute bony process in left hip and flank to account for her symptoms. Updated patient about the findings. We could continue with steroid for a few days for increased pain and inflammation control. I can add on a muscle relaxer to try and help with spasms and pain. Also will write for Percocet 10/325 for some breakthrough pain beyond her 10 mg oxycodone immediate release that she is already taking. 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 She can alternate ice and heat to side and hip as well. Check with PCP for continued concerns. Progress Note #3: Time: 15:34 Progress Note April, Pharmacist from [facility], called about the patient's prescription for Percocet 10/325. She states that without a PA insurance will not cover this script since she has chronic script for Oxycodone 10 mg IR. Advised pharmacist that I did not have a way to do a PA for her meds so she will have to make do with Prednisone and Cyclobenzaprine. She will need to picker tender helper her chronic pain meds from [facility] tomorrow and work with Dr. Leyva for additional pain control. Diagnostic Imaging Diagonstic Imaging: CT Plain Films/CT/US/NM/MRI: abdomen, pelvis Comments [facility], [place] NAME: AUGUSTINA DENTON [facility] REC#: [id number] PT STATUS: REG ER : 1990 PHYSICIAN: MICHELLE GOSS MD ADMIT DATE: 02/11/22/ER FS Signed Date of Exam:02/11/22 CT ABDOMEN/PELVIS WO PROCEDURE: CT abdomen and pelvis without contrast. TECHNIQUE: Multiple contiguous axial images were obtained through the abdomen and pelvis without the use of intravenous contrast. Auto Exposure Controls were utilized during the CT exam to meet ALARA standards for radiation dose reduction. INDICATION: Left hip and flank pain. Low back pain. Trauma. Fall in bathroom. COMPARISON: CT abdomen and pelvis 10/28/2020. FINDINGS: Cholelithiasis without secondary findings cholecystitis. The liver, pancreas, spleen, adrenals, kidneys, collecting systems and bladder are negative. Appendectomy. Reproductive structures are grossly unremarkable. No free intraperitoneal air or fluid. No lymphadenopathy. No evidence of bowel obstruction. No acute osseous findings. IMPRESSION: 1. No acute CT findings in the abdomen or pelvis. 2. Cholelithiasis without evidence of cholecystitis. Dictated by: Dictated on workstation # [id number] Dict: 02/11/22 1417 Trans: 02/11/22 1505 [facility] [id number] Interpreted by: MARILIA ARAIZA MD Electronically signed by: MARILIA ARAIZA MD 02/11/22 1505 Reviewed: Reviewed by Me Departure Impression Primary Impression: Acute pain of left hip Additional Impressions: Fall at home Qualified Codes: W19.XXXA - Unspecified fall, initial encounter; Y92.009 - Unspecified place in unspecified non-institutional (private) residence as the place of occurrence of the external cause Acute left flank pain Disposition: HOME, SELF-CARE Condition: Stable Departure-Patient Inst. Decision time for Depature: 15:05 Referrals: ESTEFANÍA LEYVA DO (PCP) Primary Care Physician Patient Instructions: Hip Pain ED, Preventing Falls ED, Flank Pain ED Add. Discharge Instructions: Try the steroid for additional help with pain and inflammation. Use the Percocet (Oxycodone/Acetaminophen) for breakthrough pain Take the cyclobenzaprine as a muscle relaxer to help with pain and spasms. Stay well hydrated and drink plenty of water. Try alternating ice and heat to the hip and flank to help with pain and inflammation. All discharge instructions reviewed with patient and/or family. Voiced understanding. Scripts Oxycodone HCl/Acetaminophen (Oxycodone-Acetaminophen 10-325) 10 Mg-325 Mg Tablet 1 EACH PO Q6H PRN for PAIN-BREAKTHROUGH MDD 3 for 5 Days, #20 TAB 0 Refills Prov: MICHELLE GOSS MD 02/11/22 Cyclobenzaprine HCl (Cyclobenzaprine HCl) 10 Mg Tablet 10 MG PO BID PRN for SPASMS for 5 Days, #10 TAB 0 Refills Prov: MICHELLE GOSS MD 02/11/22 Prednisone (Prednisone) 20 Mg Tab 40 MG PO DAILY for pain/inflammation for 5 Days, #10 TAB 0 Refills Prov: MICHELLE GOSS MD 02/11/22 MICHELLE GOSS MD Feb 11, 2022 13:48
--- NOTE | 2022-02-11 14:25 | Diagnostic Imaging Report ---
PROCEDURE: CT abdomen and pelvis without contrast. TECHNIQUE: Multiple contiguous axial images were obtained through the abdomen and pelvis without the use of intravenous contrast. Auto Exposure Controls were utilized during the CT exam to meet ALARA standards for radiation dose reduction. INDICATION: Left hip and flank pain. Low back pain. Trauma. Fall in bathroom. COMPARISON: CT abdomen and pelvis 10/28/2020. FINDINGS: Cholelithiasis without secondary findings cholecystitis. The liver, pancreas, spleen, adrenals, kidneys, collecting systems and bladder are negative. Appendectomy. Reproductive structures are grossly unremarkable. No free intraperitoneal air or fluid. No lymphadenopathy. No evidence of bowel obstruction. No acute osseous findings. IMPRESSION: 1. No acute CT findings in the abdomen or pelvis. 2. Cholelithiasis without evidence of cholecystitis. Dictated by: Dictated on workstation # [id number]
[2022-02-11 14:47] VITALS: BP 157/90
[2022-02-11] MEDS ORDERED: PRD20T PO (15:09)
[2022-02-11] MEDS ORDERED: CYCL10TA25 PO (15:09)
[2022-02-11] MEDS ORDERED: OXYC-556 PO (15:09)
== END 2022-02-11 15:11 | disposition home or self-care (01) ==
LOC: EDUNIT# 13:29 → ER FS 13:30
DX: M25.552 Pain in left hip (principal); R10.9 Unspecified abdominal pain; E66.9 Obesity, unspecified; Z68.41 Body mass index [BMI] 40.0-44.9, adult; W18.2XXA Fall in (into) shower or empty bathtub, initial encounter; Y93.E1 Activity, personal bathing and showering; Y92.009 Unspecified place in unspecified non-institutional (private) residence as the place of occurrence of the external cause
CPT/HCPCS: 74176

== ENCOUNTER 2022-02-11 20:34 | Emergency (ER) | payer MEDICAID ==
[~2022-02-11] VITALS: Ht 162.5 cm; Wt 115.6 kg
[~2022-02-11 20:34] MED LIST changes: +CYCL10TA25 PO; +OXYC-556 PO; +PRD20T PO
[2022-02-11 20:39] VITALS: BP 124/70
[2022-02-11] MEDS ORDERED: HYDROmorphone 2 MG/ML VIAL (DILAUDID) IM STA (20:52)
[2022-02-11] MEDS ORDERED: KETOROLAC 60 MG/2 ML VIAL IM STA (20:52)
[2022-02-11] MEDS ORDERED: ONDANSETRON 4 MG (ZOFRAN) ORAL DISSOLVE TAB PO STA (20:56)
--- NOTE | 2022-02-11 20:56 | ED General ---
General Chief Complaint: General Problems/Pain Stated Complaint: LEFT HIP AND BACK PAIN Source of Information: Patient, Old Records History of Present Illness Date Seen by Provider: Feb 11, 2022 Time Seen by Provider: 20:54 Initial Comments 31-year-old female presenting with complaints of chronic low back pain and continued left hip and flank pain since she had a fall earlier today. At that time I had evaluated her in the emergency department with CT scan imaging. There is no acute bony injury or intra-abdominal bleeding. Patient was unable to fill prescription for breakthrough pain medication at the pharmacy due to it being flagged for her already having a recent narcotic prescription. 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 So I was aware of her chronic pain medication and was trying to help just with the breakthrough pain. Since she was not able to get any pain medicine and only had the steroid and muscle relaxers she came into the emergency department due to the increased continued pain. No acute new injury or change since she was seen earlier today. Severity: Severe Modifying Factors: worse with Movement Associated Systoms: No Chest Pain, No Cough, No Diaphoresis, No Fever/Chills, No Headaches, No Loss of Appetite, No Malaise; Nausea/Vomiting (Nausea but no vomiting); No Rash, No Seizure, No Shortness of Air, No Syncope, No Weakness Allergies and Home Medications Allergies Uncoded Allergies: PCN (Allergy, Mild, 06/21/10) SULFA (Allergy, Mild, 06/21/10) Patient Home Medication List Home Medication List Reviewed: Yes Ciprofloxacin HCl (Ciprofloxacin HCl) 500 Mg Tablet, 500 MG PO BID Prescribed by: DILIP CHILDRESS on 09/03/20 0123 Cyclobenzaprine HCl (Cyclobenzaprine HCl) 10 Mg Tablet, 10 MG PO BID PRN for SPASMS Prescribed by: MICHELLE GOSS on 02/11/22 1509 Metronidazole (Flagyl 500 Mg) 500 Mg Tab, 1 EACH PO TID Prescribed by: BASILIA QUIROZ on 06/21/10 0452 Naproxen (Naprosyn) 500 Mg Tablet, 1 EACH PO TID PRN Prescribed by: BASILIA QUIROZ on 06/21/10 045 Oxycodone HCl/Acetaminophen (Oxycodone-Acetaminophen 10-325) 10 Mg-325 Mg Tablet, 1 EACH PO Q6H PRN for PAIN-BREAKTHROUGH Prescribed by: MICHELLE GOSS on 02/11/22 1509 Prednisone (Prednisone) 20 Mg Tab, 40 MG PO DAILY Prescribed by: MICHELLE GOSS on 02/11/22 1509 Review of Systems Review of Systems Constitutional: No chills, No fever EENTM: no symptoms reported Respiratory: no symptoms reported Cardiovascular: no symptoms reported Gastrointestinal: nausea; No vomiting Genitourinary: No dysuria; pain (Left flank pain) Musculoskeletal: joint pain (Left hip pain) Skin: no symptoms reported Psychiatric/Neurological: No Symptoms Reported Past Epzrkpt-Gneykw-Hfcvyv Hx Seasonal Allergies Seasonal Allergies: No Past Medical History Surgery/Hospitalization HX: Chronic Back pain, Rheumatoid Arthritis Surgeries: Yes (B/l ear tubes as child) Oophorectomy Respiratory: No Cardiac: No Neurological: No Female Reproductive Disorders: Ovarian Cyst Genitourinary: No Gastrointestinal: No Musculoskeletal: Yes Fibromyalgia, Rheumatoid Arthritis Endocrine: No HEENT: Yes Hearing Impairment: Hard of Hearing Cancer: No Psychosocial: Yes Anxiety, Depression Integumentary: No Blood Disorders: No Family Medical History Heart Disease, Hypertension Physical Exam Vital Signs Vital Signs - First Documented 02/11/22 20:39 Temp 37.0 Pulse 82 Resp 16 B/P (MAP) 124/70 (88) Pulse Ox 97 O2 Delivery Room Air Capillary Refill : Height, Weight, BMI Height: 5'5.00" Weight: 220lbs. oz. 99.760474av; 43.00 BMI Method:Stated General Appearance: Anxious, Obese Extremity: Normal Capillary Refill, No Pedal Edema, Other (pain to palpation of lateral left hip. no crepitus or step off. no bruising) Neurologic/Psychiatric: Alert, Oriented x3 Skin: Normal Color, Warm/Dry Progress/Results/Core Measures Suspected Sepsis SIRS Temperature: Pulse: Respiratory Rate: Blood Pressure / Mean: Results/Orders My Orders Orders - MICHELLE GOSS MD Hydromorphone Injection (Dilaudid Inject (02/11/22 20:52) Ketorolac Injection (Toradol Injection) (02/11/22 20:52) Rx-Oxycodone/Apap 5-325 Mg (Rx-Percocet (02/11/22 21:00) Ondansetron Oral Dissolve Tab (Zofran (02/11/22 20:56) Medications Given in ED Current Medications Medications Dose Ordered Sig/Henrietta Route Start Time Stop Time Status Last Admin Dose Admin Oxycodone/ Acetaminophen 1 ea Q4H PRN PO 02/11/22 21:00 02/11/22 21:15 DC 02/11/22 21:08 1 EA Vital Signs/I&O 02/11/22 20:39 Temp 37.0 Pulse 82 Resp 16 B/P (MAP) 124/70 (88) Pulse Ox 97 O2 Delivery Room Air Capillary Refill : Progress Note : Progress Note Advised patient that I was aware that they were unable to fill the breakthrough pain prescription that I sent earlier. As she is currently out of her chronic oxycodone IR she was having increased chronic pain as well as the new pain from the fall. Counseled that I did not have a way to get a prior authorization or feel more medicine for her at this hour. Will administer a pain shot of Dilaudid to see if that might last longer. Offered to do Toradol again but patient refused an IM shot because she said it burned too much. She was willing to get it if it was going to be IV but we did not have an indication to start an IV just to give 1 medication. We will send her with a take-home pack of Percocet 08/22/2024. 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 Departure Impression Primary Impression: Contusion of left hip and thigh Qualified Codes: S70.02XA - Contusion of left hip, initial encounter; S70.12XA - Contusion of left thigh, initial encounter Additional Impressions: Acute pain of left hip Chronic back pain Qualified Codes: M54.50 - Low back pain, unspecified; G89.29 - Other chronic pain Disposition: 01 HOME, SELF-CARE Condition: Stable Departure-Patient Inst. Decision time for Depature: 20:54 Referrals: ESTEFANÍA FOX DO (PCP/Family) Primary Care Physician Patient Instructions: CHRONIC PAIN, Hip Pain ED, Minor Contusion ED Add. Discharge Instructions: You could use the Percocet 5/325 mg pills for tonight. 1 every 4 hours as needed for pain. Fill your prescription for your chronic Oxycodone IR 10 mg pills with [facility] tomorrow. Try alternating ice and heat to your hip and back to help with pain All discharge instructions reviewed with patient and/or family. Voiced understanding. MICHELLE GOSS MD Feb 11, 2022 20:56
[2022-02-11] MEDS ORDERED: RX-OXYCODONE/APAP 5-325 MG #4 TAB PK PO PRN (21:00)
== END 2022-02-11 21:14 | disposition home or self-care (01) ==
LOC: EDUNIT# 20:34 → ER FS 20:37
DX: S70.02XA Contusion of left hip, initial encounter (principal); S70.12XA Contusion of left thigh, initial encounter; M54.50 Low back pain, unspecified; G89.29 Other chronic pain; E66.9 Obesity, unspecified; Z68.41 Body mass index [BMI] 40.0-44.9, adult; W19.XXXA Unspecified fall, initial encounter; Y92.009 Unspecified place in unspecified non-institutional (private) residence as the place of occurrence of the external cause
CPT/HCPCS: 99284